=== PATIENT | male | born 1935 | race Caucasian/White ===

== ENCOUNTER 2018-04-12 18:44 | Emergency (ER) | payer OTHER ==
[~2018-04-12] VITALS: Ht 170.2 cm; Wt 81.7 kg
[~2018-04-12 18:44] MED LIST: ALLEGRA ALLERG180 MG; AMITRIPTYLINE H10 M3 PO; ASPIR 8181 MG PO; CALCIUM 500 +1 EAC5 PO; CARBIDOPA-LEVO1 EAC2 PO; CIPRO500 MG PO; CITRATE OF MAG296 ML PO; COLESTID1 GM PO; EZETIMIBE; FLAGYL500 MG PO; HYDROCODONE-AP1 EAC6 PO; LISINOPRIL2.5 M1 PO; LOPRESSOR25 PO; MINIPRIN81 MG; MIRALAX17 GM PO; NORVASC10 MG PO; PRILOSEC 20 MG20 MG PO; PRINIVIL20 MG; SERTRALINE; TOPROL XL50 MG; TYLENOL325 MG PO; ZETIA10 MG PO; ZOLOFT50 MG PO
[2018-04-12] MEDS ORDERED: SINEMET 25-2501 EAC1 PO (20:46)
[2018-04-12 21:12] VITALS: BP 132/93
== END 2018-04-12 21:14 | disposition home or self-care (01) ==
LOC: M.ERS 18:44
DX: S01.01XA Laceration without foreign body of scalp, initial encounter (principal); I25.810 Atherosclerosis of coronary artery bypass graft(s) without angina pectoris; I10 Essential (primary) hypertension; E78.00 Pure hypercholesterolemia, unspecified; G30.9 Alzheimer's disease, unspecified; F02.80 Dementia in other diseases classified elsewhere, unspecified severity, without behavioral disturbance, psychotic disturbance, mood disturbance, and anxiety; Z88.2 Allergy status to sulfonamides; Z88.5 Allergy status to narcotic agent; W19.XXXA Unspecified fall, initial encounter; Y93.89 Activity, other specified; Y92.091 Bathroom in other non-institutional residence as the place of occurrence of the external cause; Y99.8 Other external cause status

== ENCOUNTER → 2018-05-24 | Outpatient (CLI) | payer OTHER ==
[~2018-05-24] MED LIST changes: +SINEMET 25-2501 EAC1 PO
== END ==
LOC: M.WC 09:16
DX: S51.811A Laceration without foreign body of right forearm, initial encounter (principal); I10 Essential (primary) hypertension; K21.9 Gastro-esophageal reflux disease without esophagitis; I25.10 Atherosclerotic heart disease of native coronary artery without angina pectoris; G20 Parkinson's disease; F33.1 Major depressive disorder, recurrent, moderate; Z79.82 Long term (current) use of aspirin; Z87.891 Personal history of nicotine dependence; X58.XXXA Exposure to other specified factors, initial encounter; Y93.89 Activity, other specified; Y92.89 Other specified places as the place of occurrence of the external cause; Y99.8 Other external cause status

== ENCOUNTER 2018-10-29 21:54 | Inpatient (IN) | payer OTHER ==
[~2018-10-29] VITALS: Ht 172.7 cm; Wt 79.4 kg
[2018-10-29 21:58] VITALS: BP 173/123
[2018-10-29 22:35] LABS: ABSOLUTE BASOPHILS 0.1 thou/uL (0.0-0.2); ABSOLUTE EOSINOPHILS 0.2 thou/uL (0.0-0.7); ABSOLUTE LYMPHOCYTES 1.3 thou/uL (0.8-5.3); ABSOLUTE MONOCYTES 0.6 thou/uL (0.0-1.2); BASOPHILS 0.5 %; EOSINOPHILS 1.4 %; HEMATOCRIT 41.6 % (42.0-52.0); HEMOGLOBIN 14.1 gm/dL (14.0-18.0); MCH 31.5 pg (26.0-34.0); MCHC 33.8 g/dL (28.0-37.0); MCV 93.3 fL (80.0-100.0); MONOCYTES 4.8 %; MPV 7.4 fl. (7.2-11.1); NUCLEATED RBCS 0 /100WBC; PLATELET COUNT* 198 thou/uL (150-400); POLYS 83.3 %; RBC 4.46 mil/uL (4.50-6.00); RDW-CV 13.1 % (10.5-14.5); WBC 13.2 thou/uL (4.0-11.0)
[2018-10-29 22:43] LABS: ANION GAP 11 mmol/L (7-16); BUN 26 mg/dL (7-18); CALCIUM 8.6 mg/dL (8.5-10.1); CHLORIDE 103 mmol/L (98-107); CO2 21 mmol/L (21-32); CREATININE 1.5 mg/dL (0.6-1.3); GLUCOSE 156 mg/dL (70-99); POTASSIUM 4.1 mmol/L (3.5-5.1); SODIUM 135 mmol/L (136-145)
[2018-10-29 22:45] LABS: PROTIME 10.3 Seconds (9.20-11.50)
[2018-10-29 22:54] LABS: ALBUMIN 3.5 g/dL (3.4-5.0); ALKALINE PHOSPHATASE 140 U/L (46-116); LIPASE 49 U/L (73-393); NT-PRO BRAIN NAT PEPTIDE 141 pg/mL (<300); SGOT 23 U/L (15-37); SGPT 13 U/L (30-65); TOTAL BILIRUBIN 0.7 mg/dL (<0.1-1.0); TOTAL PROTEIN 7.4 g/dL (6.4-8.2); TROPONIN-I LEVEL <0.06 ng/mL (<0.06)
[2018-10-29 22:54] LABS: URINE BILIRUBIN NEGATIVE (Negative); URINE BLOOD NEGATIVE (Negative); URINE CLARITY CLEAR; URINE COLOR YELLOW; URINE GLUCOSE-RANDOM NEGATIVE (Negative); URINE KETONES TRACE (Negative); URINE LEUKOCYTES-REFLEX NEGATIVE (Negative); URINE NITRITE-REFLEX NEGATIVE (Negative); URINE PROTEIN NEGATIVE (Negative); URINE SPECIFIC GRAVITY 1.025 (1.005-1.030); URINE UROBILINOGEN 0.2 E.U./dl (0.2-1.0)
[2018-10-29 23:43] LABS: INFLUENZA A ANTIGEN None Detected (None Detect); INFLUENZA B ANTIGEN None Detected (None Detect)
[2018-10-30] VITALS (7 sets, daily range): BP systolic 96–126; BP diastolic 50–68
--- NOTE | 2018-10-30 03:44 | NUR ---
83 Y/O MALE ADMITTED TO TELEMETRY ROOM 213 AT APPROXIMATELY 0040 WITH AN ADMITTING DIAGNOSIS OF IRREGULAR HEART BEAT, JAW PAIN, FALL. PT IS A&O X 3. AND DAUGHTER AT BEDSIDE UPON ARRIVAL. PT DENIES ANY PAIN AT THIS TIME. PT IS TRACING SR ON MONITOR. VSS. PT IS PLEASANT AND COMPLIAMT WITH ALL REQUESTS. REFER TO COMPUTER CHARTING FOR FURTHER DETAIL. HOURLY ROUNDING FOR PT SAFETY. CLWR.
--- NOTE | 2018-10-30 08:36 | NUR ---
ASSUMED CARE OF PT THIS AM AROUND 714- SEQUINS WINDER IN PLACE ORDERED, TRACING SR WITH PAC'S- UPON ASSESSMENT PT NOTED TO BE RESTING IN BED, DAUGHTER AT BEDISDE- PT A&O X2-3, WITH NOTED FORGETFULLNESS- CONTINENT OF BOWEL AND BLADDER WITH NOTED URGENCY- ASSIST X1 WITH TRANSFERS- LCTA, RESP EVEN AND UN-LABORED- VSS, O2 SAT 95% ON 2L VIA NC- ABD SOFT/ROUND/NON-TENDER, BS X4 QUADS- LAST BM REPORTED 09-28-18- IV NOTED TO RIGHT FA INTACT AND SL- DIET ADVANCED TO REGULAR WITH NECTAR LIQUIDS THIS AM- PT DENIES ANY C/O PAIN/DISCOMFORT AT THIS TIME- CALL LIGHT AND PERSONAL BELONGINGS WITH IN REACH- HOURLY ROUNDS IN PLACE R/T SAFETY/NEEDS- ALL NEEDS MET AT THIS TIME-WCTM
--- NOTE | 2018-10-30 10:17 | EKG ---
[place] [address] ELECTROCARDIOGRAM REPORT Name: HECTOR CARRINGTON Room: [address] ADM IN M.R.#: [id number] Admission: 10/30/18 Attend Phys: Davy Dillon MD Discharge: Date of : 31 Report #: [id number] THIS REPORT FOR: //name// [facility] ED Test Date: 2018-10-29 Test Time: 22:19:46 Pat Name: HECTOR CARRINGTON Department: Room: [facility] Gender: M Mainspring Torque Tester: GL : 1935 Requested By: Tessy Garcia Order Number: [id number] MD: Blaine Dorsey Measurements Intervals [place] Rate: 101 P: 47 AL: 134 QRS: 82 QRSD: 90 T: 25 QT: 327 QTc: 424 Interpretive Statements Sinus tachycardia Ventricular premature complex Borderline right axis deviation Compared to ECG 05/24/2016 06:58:10 Ventricular premature complex(es) now present Right bundle-branch block no longer present Myocardial infarct finding no longer present Electronically Signed On 10-30-2018 10:16:55 TELECOMMUNICATIONS ENGINEER by Blaine Dorsey [email or web address] <ELECTRONICALLY SIGNED> By: Blaine Dorsey MD, FAC 10/30/18 1016 2219 2219 Blaine Dorsey MD, [facility] /EPI
--- NOTE | 2018-10-30 15:34 | NUR ---
INITIAL ASSESSMENT: CM SPK W/PT'S DTR, BECKIE TO DISCUSS D/C PLANNING, HOME SITUATION, TO EDUCATE PT ON CM ROLE. PT A&OX 2-3, PT GET CONFUSED W/PLACE AND NOT ORIENTED TO TIME. PT'S DTR STATES FAMILY IS WORKING W/VA SW TO HAVE PT PLACE IN LTC @ [facility]. PT HAS HX W/SNF @ [facility] IN 2016. CM TO CONT TO FOLLOW PT TO ASSIST PRN.
--- NOTE | 2018-10-30 16:41 | NUR ---
PT CURRNELTY RESTING IN BED- WIC SITE COORDINATOR IN PLACE ORDERED, TRACING SB WITH PAC- IV TO RIGHT FA INTACT, IVF INFUSSING PRESCIBED- GOOD PO INTAKE NOTED THIS SHIFT WITH MEASL- OT/PT CONSULTED THIS SHIFT- PT UP TO BED SIDE CHAIR WITH LUNCH THIS SHIFT, TOLERATING WELL- MED BM NOTED THIS SHIFT- PT DENEIS ANY C/O PAIN/DISCOMFORT AT THIS TIME- CALL LIGHT AND PERSONAL BELONGINGS WITH IN REACH- ALL NEEDS MET AT THIS TIME-WCTM
[2018-10-30 23:08] LABS: GLYCOHEMOGLOBIN (HGB A1C) 6.6 % (4.8-5.6)
[2018-10-31] VITALS (7 sets, daily range): BP systolic 93–127; BP diastolic 39–62
[2018-10-31 05:20] LABS: HEMATOCRIT 34.3 % (42.0-52.0); MCV 94.2 fL (80.0-100.0); MPV 7.8 fl. (7.2-11.1); RBC 3.64 mil/uL (4.50-6.00); RDW-CV 12.8 % (10.5-14.5)
[2018-10-31 05:28] LABS: HEMOGLOBIN 11.7 gm/dL (14.0-18.0)
[2018-10-31 05:33] LABS: CREATININE 1.4 mg/dL (0.6-1.3); POTASSIUM 4.7 mmol/L (3.5-5.1)
--- NOTE | 2018-10-31 07:03 | NUR ---
VITALS WNL. SEE MAR. SEE CHARTING. FALL PRECAUTIONS IN PLACE. HOURLY ROUNDING FOR SAFETY.
--- NOTE | 2018-10-31 09:00 | NUR ---
ASSUMED CARE OF PT THIS AM AROUND 0715- COMIC WRITER IN PLACE ORDERED, TRACING SB THIS AM- UPON ASSESSMENT PT NOTED TO BE RESTING IN BED, DAUGHTER AT SIDE VISITING- PT SEEMS TO BE MORE ALERT THIS AM- A&O X3 WITH FORGETFULLNESS- CONTINENT VS INCONTINENT OF BOWEL AND BLADDER- LIMITED ASSIST WITH TRANSFERS- LCTA, DIMINISHED IN BASES- RESP EVEN AND UN-LABORED- VSS, O2 SAT 97% ON 2L VIA NC- BAD SOFT/ROUND/NON-TENDER, BS X4 QUADS- LAST BM REPORTED 10/30/18- IV NOTED TO RIGHT FA INTACT AND SL- PT UP TO BED SIDE CHAIR THIS AM WITH BREAKFAST, REGULAR DIET WITH NECTAR LIQUIDS IN PLACE WITH GOOD PO INTAKE NOTED- PT DENIES ANY C/O PAIN/DISCOMFORT AT THIS TIME- CALL LIGHT AND PERSONAL BELONGINGS WITH IN REACH- HOURLY ROUNDS IN PLACE R/T SAFETY/NEEDS- ALL NEEDS MET AT THIS TIME-WCTM
[2018-10-31] MEDS ORDERED: LOPRESSOR25 PO (09:37)
--- NOTE | 2018-10-31 10:40 | NUR ---
CM spoke with Pt's dtr, dtr wants Pt to dc to [facility] skilled at dc. Therapies ordered, awaiting evals. KIRILL spoke with Liliane at [facility], they have bed availability. CM faxed intitial referral, will fax therapy evals once available. Following.
--- NOTE | 2018-10-31 16:20 | NUR ---
PT RYDER RESTING IN BED SIDE CHAIR, AT SIDE VISITING- LABOR RELATIONS ANALYST IN PLACE ORDERED, TRACING SR/SB THIS SHIFT- IV TO LEFT FA INTACT AND SL- PT UP TO CHAIR THIS SHIFT WITH MEALS, TOLERATING WELL WITH GOOD PO INTAKE NOTED- METOPROLOL CHANGED TO SUCCINATE DAILY THIS SHIFT- OKAY TO D/C PER CARDIOLOGY AND THIS SHIFT TO RESIDENTIAL- D/C TO SKILLED PENDING INSURANCE AUTHORIZATION- PT WORKING WITH THERAPIES THIS SHIFT ORDERED, TOLERATING WELL- DENIES ANY C/O PAIN/DISCOMFORT AT THIS TIME- CALL LIGHT AND PERSONAL BELONGINGS WITH IN REACH- BED/CHAIR ALARM IN PLACE AND WORKING FOR PT SAFETY- ALL NEEDS MET AT THIS TIME-WCTM
[2018-11-01 00:09] VITALS: BP 124/61
[2018-11-01 04:09] VITALS: BP 113/61
--- NOTE | 2018-11-01 06:58 | NUR ---
VITALS WNL. SEE MAR. SEE CHARTING. FALL PRECAUTIONS IN PLACE. HOURLY ROUNDING FOR SAFEY.
[2018-11-01 08:21] VITALS: BP 136/76
--- NOTE | 2018-11-01 09:00 | NUR ---
CM faxed therapy notes to [facility], asked that they initiate ins auth
--- NOTE | 2018-11-01 10:23 | NUR ---
ASSUMED CARE OF PT THIS AM AROUND 0715- PECAN CLEANER IN PLACE ORDERED, TRACING SB THIS AM- UPON ASSESSMENT PT NOTED TO BE RESTING IN BED- PT A&O X3 WITH FORGETFULLNESS AND IMPULSIVENESS NOTED- LCTA, DIMINISHED IN BASES- DYSPNEA NOTED ON EXERTION- VSS, O2 SAT 98% ON 2L VIA [id number] COUGH NOTED- ABD SOFT/ROUND/NON-TENDER, BS X4 QUADS- LAST BM REPORTED 10/30/18- IV NOTED TO RIGHT FOREARM INTACT AND SL- REGULAR DIET IN PLACE WITH NECTAR LIQUIDS, GOOD PO INTAKE NOTED-PT UP TO BED SIDE CHAIR, TOLERATING WELL- DAUGHTER AT BED SIDE THIS AM- PT DENIES ANY C/O PAIN/DISCOMFORT AT THIS TIME- CALL LIGHT AND PERSONAL BELONGINGS WITH IN REACH- BED/CHAIR ALARMS IN PLACE R/T SAFETY- HOURLY ROUNDS IN PLACE R/T SAFETY/NEEDS- ALL NEEDS MET AT THIS TIME-WCTM
--- NOTE | 2018-11-01 12:23 | CON ---
[address] [address] CONSULTATION Name: HECTOR CARRINGTON Room: [address] IN M.R.#: [id number] Admission: 10/30/18 Attend Phys: Davy Dillon MD Discharge: Date of : 33 Report #: [id number] THIS REPORT FOR: //name// CC: Davy Calabrese DATE OF SERVICE: 10/30/2018 TYPE OF REPORT: Inpatient consultation. CHIEF COMPLAINT: Neck discomfort, heart racing and fall. HISTORY OF PRESENT ILLNESS: The patient is an 83-year-old man with a history of progressive neurologic disease as well as coronary artery disease. He presented to the emergency room with an episode of dizziness, lightheadedness fall and was noted to have a tachycardia with heart rates in the 150s-160s in a narrow complex. He converted to a sinus rhythm. He was evaluated with a CT scan of the brain did not show evidence of intracranial trauma or bleeding. Overnight on telemetry, he has had frequent episodes of sinus rhythm and PACs but no documented atrial fibrillation, although there was concern he has atrial fibrillation. From a cardiovascular standpoint, he denies palpitations and he only he notices his heart is racing when his neck hurts and he gets anxious feeling. He does have an underlying history of prior bypass surgery and he is followed by Dr. Driscoll. He has a history of progressive neurologic disease, PSP and is treated with levodopa, carbidopa and has had frequent falls almost on a weekly basis. He also has separate symptoms of frequent constipation and heart reflux symptoms causing chest pain symptoms similar to angina. His ECG did not show an acute ST-segment changes and his first cardiac troponin level is 0.06. PAST MEDICAL HISTORY: He has a history of remote in 2005, 5-vessel bypass at [facility], is followed by Dr. Driscoll. He has at the time of our most recent evaluation in 2016, normal LV systolic function, although records from are pending. At that time, he also had some history of nonsustained ventricular tachycardia. He has hypertension and the aforementioned neurologic disease. His graft history includes a RUTH to LAD, a saphenous vein graft to the right coronary artery and saphenous vein graft to the diagonal, obtuse and posterolateral branch. FAMILY HISTORY: [place] [address] CONSULTATION Name: HECTOR CARRINGTNO Room: [address]#: [id number] Admission: 10/30/18 Attend Phys: Davy Dillon MD Discharge: Date of : 33 Report #: [id number] SOCIAL HISTORY: He is . There was talk of him may be needing a shelter because of his neurologic disease. He is a remote smoker. ALLERGIES: He has allergies to SULFA, NYSTATIN and OXYCODONE. HOME MEDICATIONS: Include the following: Levodopa/carbidopa 25/250 mg daily, lisinopril 2.5 mg daily, omeprazole 20 mg daily, baby aspirin, amitriptyline, Zoloft and Zetia 10 mg daily. REVIEW OF SYSTEMS: GASTROINTESTINAL: No nausea or vomiting. Positive constipation. No hematemesis or melena. GENITOURINARY: No dysuria or hematuria. NEUROLOGICAL: Denies seizures. Positive Parkinson's disease like symptoms. Positive weakness. Positive falls. Positive gait stability. PULMONARY: Positive shortness of breath. Positive orthopnea. Positive PND. SKIN: No rashes. GENERAL: No fevers or chills. THROAT: Denies any dysphagia. ENDOCRINE: No diabetes. PHYSICAL EXAMINATION: VITAL SIGNS: Blood pressure is ranging from 96 systolic to 120 and he actually came in hypertensive with systolic pressures in the 170s. His overnight, heart rates have been in the 60s-70s in a sinus rhythm with PACs and temperature is 36.4. GENERAL: This is an elderly male. He is a poor historian. HEENT: There is no evidence of trauma. Eyes: EOMs intact. No facial asymmetry. NECK: Supple. No jugular venous distention. CARDIOVASCULAR: Regular. I cannot hear a murmur. LUNGS: Diminished breath sounds bilaterally. ABDOMEN: Nontender. EXTREMITIES: There is no peripheral edema. There is peripheral wasting. RADIOLOGICAL DATA: Electrocardiogram shows a sinus rhythm with a PVC, left axis deviation and normal ST segments. LABORATORY DATA: Hemoglobin is 14.1 and white blood count is 13.2. Sodium is 135, potassium is 4.1, chloride is 103, BUN is 26, creatinine is 1.5 and GFR is 44. INR is 1.0. IMPRESSION AND RECOMMENDATIONS: 1. Narrow-complex tachycardia. On initial telemetry, it looked like an supraventricular tachycardia to myself, but there is also mention of possible [facility] [address] [place] [address] CONSULTATION Name: HECTOR CARRINGTON Room: M.213-P ADM IN M.R.#: [id number] Admission: 10/30/18 Attend Phys: Davy Dillon MD Discharge: Date of : 33 Report #: [id number] atrial fibrillation on telemetry strips but I have not seen those, in our telemetry, he is in a sinus rhythm with frequent premature atrial contractions. Based on his historical data, I would not pursue an aggressive atrial fibrillation workup as the patient does not seem to be a good candidate for aggressive medical therapy including anticoagulation because of his documented falls. I would place him on a low dose of beta juan. I would avoid calcium channel blockers as he already has constipation symptoms because of his neurologic disease. 2. Coronary artery disease. His neck discomfort may represent an anginal episode triggered by his tachycardia. I would continue with medical therapy including aspirin if possible but if his falls worsened, aspirin may need to be discontinued. 3. Progressive neurologic disease, Parkinson's disease/progressive supranuclear palsy. He is on aggressive medical therapy for this and followed by [facility]. 4. Status post coronary artery bypass grafting. At this point in time, we will continue with conservative medical therapy. <ELECTRONICALLY SIGNED> By: Blaine Dorsey MD, FACC 11/01/18 1223 0957 2127Blaine Dorsey MD, FACC /nt
[2018-11-01 12:56] VITALS: BP 128/61
--- NOTE | 2018-11-01 16:28 | NUR ---
PT CURRENTLY RESTING IN BED SIDE CHAIR AWAITING DINNER- CHAIR ALARM IN PLACE R/T SAFETY/NEEDS- COMMERCIAL LOAN ASSISTANT IN PLACE ORDERED, TRACING SB THIS SHIFT- D/C TO SKILLED PLANNED PENDING INSURANCE AUTH- IV NOTED TO RIGHT FA INTACT AND SL- WORKING WITH THERAPIES PRESCRIBED THIS SHIFT, TOLERATING WELL- UP TO BED SIDE CHAIR WITH MEALS, GOOD PO INTAKE NOTED- REST/EXERCISE TEST COMPLETED PER RT THIS SHIFT, REPORTED TO NOT NEED O2 AT TIME OF D/C- 94-97% ON RA NOTED- METOPROLOL DECREASED TO 12.5MG BID THIS SHIFT- DENIES ANY C/O PAIN/DISCOMFORT AT THIS TIME- CALL LIGHT AND PERSONAL BELONGINGS WITH IN REACH- FREQUENT CHECKS IN PLACE R/T SAFETY/NEEDS- ALL NEEDS MET AT THIS TIME-WCTM
[2018-11-01 16:49] VITALS: BP 118/58
[2018-11-01 20:00] VITALS: BP 121/64
[2018-11-02] VITALS: BP 155/72
[2018-11-02 04:00] VITALS: BP 126/68
--- NOTE | 2018-11-02 06:30 | NUR ---
ASSUMED CARE OF PT AFTER REPORT AT 1930. PT A&OX4. VSS. PHYSICAL ASSESSMENT COMPLETED AND CHARTED. PT ON RA WITH 97% O2 SAT. PT TRACING SB/ PACS ON TELE. PT UP STANBY TO RESTROOM. PT DENIES NAY PAIN OR DISCOMFORT. PT RESTED WELL ON BED. CALL LIGHT WITHIN REACH.
[2018-11-02 08:00] VITALS: BP 152/80
--- NOTE | 2018-11-02 08:00 | NUR ---
ASSUMED CARE OF PT AT 0730. PT RESTING IN BED WAITING FOR BREAKFAST. PT A&0X3-4, FORGETFUL AND IMPULSIVE AT TIMES. PT TRACING SB ON THE MORTGAGE PROCESSING CLERK. ON RA SAT UPPER 90'S. DENIES ANY SHORTNESS OF BREATH OR PAIN AT THIS TIME. PT UP WITH 1 ASSIST TO BATHROOM. PT GOAL FOR TODAY IS TO INCREASE ACTIVITY AND DISCHARGEG PLANNING TO SENIOR LIVING FACILITY. AM ASSSESSMENT CHARTED. MEDICATIONS PER MAR WHOLE IN APPLESAUCE. PT REPOSITIONED EVERY 2 HOURS FOR COMFORT. HOURLY ROUNDING OBSERVED. BED IN LOW POSITION. BED ALARM IN PLACE. FALL PRECAUTIONS IN PLACE. CALL LIGHT WITHIN REACH. WILL CONTINUE PLAN OF CARE.
[2018-11-02 09:29] VITALS: BP 152/80
--- NOTE | 2018-11-02 09:48 | NUR ---
Pt discharging to [facility], facility will picking crew supervisor at 1130. Faxed dc orders. Chart copied. Nurse report number provided, [phone]. Updated Pt's dtr.
--- NOTE | 2018-11-02 11:34 | NUR ---
DISCHARGE ORDERS RECEIVED FOR PT TO DISCHARGE TO [facility]. DISCHARGE INSTRUCTIONS, CARE NOTES AND FOLLOW UP APPTS COPIED AND PLACED IN FOLDER FOR PT AT DISCHARGE. EDUCATION GIVEN TO PT DAUGHTER, PT DAUGHTER COMMUNICATES UNDERSTANDING OF DISCHARGE TEACHING. IV AND ORACLE DISTRIBUTION CONSULTANT REMOVED. PT DISCHARGED WITH ALL BELONGINGS AND PAPERWORK VIA WHEELCHAIR WITH WHEELCHAIR VAN SERVICE. REPORT CALLED TO JAMARI AT [facility].
== END 2018-11-02 11:35 | DRG 309 ==
LOC: M.ERS 21:54 → M.2W 10-30 00:05 → M.TBA-ER 10-30 00:05 → M.2W 10-30 00:40
PROVIDERS: Emergency Medicine; Family Medicine; ADMIT Internal Medicine
DX: I49.3 Ventricular premature depolarization (principal); G23.1 Progressive supranuclear ophthalmoplegia [Steele-Richardson-Olszewski]; E86.0 Dehydration; N18.3 Chronic kidney disease, stage 3 (moderate); I25.10 Atherosclerotic heart disease of native coronary artery without angina pectoris; E78.00 Pure hypercholesterolemia, unspecified; G30.9 Alzheimer's disease, unspecified; F02.80 Dementia in other diseases classified elsewhere, unspecified severity, without behavioral disturbance, psychotic disturbance, mood disturbance, and anxiety; R53.83 Other fatigue; R00.0 Tachycardia, unspecified; I12.9 Hypertensive chronic kidney disease with stage 1 through stage 4 chronic kidney disease, or unspecified chronic kidney disease; G20 Parkinson's disease; G89.29 Other chronic pain; M54.9 Dorsalgia, unspecified; Z79.82 Long term (current) use of aspirin; Z88.6 Allergy status to analgesic agent; Z88.2 Allergy status to sulfonamides; Z82.49 Family history of ischemic heart disease and other diseases of the circulatory system; Z95.1 Presence of aortocoronary bypass graft; Z87.891 Personal history of nicotine dependence; Z79.899 Other long term (current) drug therapy; Z88.8 Allergy status to other drugs, medicaments and biological substances

== ENCOUNTER 2018-11-28 13:35 | Inpatient (IN) | payer OTHER ==
[~2018-11-28] VITALS: Ht 182.9 cm; Wt 78.5 kg
[2018-11-28 13:37] VITALS: BP 161/67
[2018-11-28 14:24] LABS: ABSOLUTE EOSINOPHILS 0.2 thou/uL (0.0-0.7); ABSOLUTE LYMPHOCYTES 2.5 thou/uL (0.8-5.3); ABSOLUTE MONOCYTES 0.6 thou/uL (0.0-1.2); ABSOLUTE NEUTROPHILS 3.1 thou/uL (1.6-8.1); BASOPHILS 0.7 %; EOSINOPHILS 3.7 %; HEMATOCRIT 42.4 % (42.0-52.0); HEMOGLOBIN 14.4 gm/dL (14.0-18.0); LYMPHOCYTES 38.4 %; MCH 31.7 pg (26.0-34.0); MCHC 33.9 g/dL (28.0-37.0); MCV 93.4 fL (80.0-100.0); MONOCYTES 9.5 %; NUCLEATED RBCS 0 /100WBC; PLATELET COUNT* 202 thou/uL (150-400); POLYS 47.7 %; RBC 4.54 mil/uL (4.50-6.00); WBC 6.5 thou/uL (4.0-11.0)
[2018-11-28 14:34] LABS: APTT 27.3 Seconds (25.0-31.3); PROTIME 10.5 Seconds (9.20-11.50)
[2018-11-28 14:42] LABS: ANION GAP 6 mmol/L (7-16); BUN 32 mg/dL (7-18); CALCIUM 9.2 mg/dL (8.5-10.1); CHLORIDE 101 mmol/L (98-107); CO2 29 mmol/L (21-32); CREATININE 1.4 mg/dL (0.6-1.3); GLUCOSE 108 mg/dL (70-99); POTASSIUM 4.8 mmol/L (3.5-5.1); SODIUM 136 mmol/L (136-145); TROPONIN-I LEVEL <0.06 ng/mL (<0.06)
[2018-11-28 14:47] LABS: ALBUMIN 3.9 g/dL (3.4-5.0); ALKALINE PHOSPHATASE 120 U/L (46-116); CK-MB MASS 1.9 ng/mL (<0.5-3.6); NT-PRO BRAIN NAT PEPTIDE 93 pg/mL (<300); SGOT 24 U/L (15-37); SGPT 18 U/L (30-65); TOTAL BILIRUBIN 0.7 mg/dL (<0.1-1.0); TOTAL PROTEIN 7.9 g/dL (6.4-8.2)
--- NOTE | 2018-11-28 16:10 | EKG ---
[place] [address] ELECTROCARDIOGRAM REPORT Name: HECTOR CARRINGTON Room: [place] [address] ADM IN .R.#: [id number] Admission: 11/28/18 Attend Phys: Kadeem Esparza MD Discharge: Date of : 33 Report #: [id number] THIS REPORT FOR: //name// [facility] ED Test Date: 2018-11-28 Test Time: 13:56:55 Pat Name: HECTOR CARRINGTON Department: Room: [facility] Gender: M Clinical Lab Technologist: : 1935 Requested By: Luis Sanchez Order Number: [id number] MD: Aidan Boyle Measurements Intervals [place] Rate: 56 P: 51 TX: 225 QRS: 38 QRSD: 91 T: 18 QT: 428 QTc: 414 Interpretive Statements Sinus rhythm Prolonged TX interval Compared to ECG 10/29/2018 22:19:46 First degree AV block now present Sinus tachycardia no longer present Ventricular premature complex(es) no longer present Electronically Signed On 11-28-2018 16:10:52 SECURITY ORDERLY by Aidan Boyle [email or web address] <ELECTRONICALLY SIGNED> By: Aidan Boyle MD, [facility] 11/28/18 1610 1356 1356 Aidan Boyle MD, [facility] /EPI
[2018-11-28 16:28] VITALS: BP 109/64
[2018-11-28 17:23] LABS: BE -2.3 mmol/L (-2 to +3); PCO2 34.6 mmHg (35.0-45.0); PO2 66.8 mmHg (75.0-100.0); pH 7.413 (7.340-7.450)
[2018-11-28 18:56] LABS: URINE BILIRUBIN NEGATIVE (Negative); URINE BLOOD NEGATIVE (Negative); URINE CLARITY CLEAR; URINE COLOR YELLOW; URINE GLUCOSE-RANDOM NEGATIVE (Negative); URINE KETONES NEGATIVE (Negative); URINE LEUKOCYTES-REFLEX NEGATIVE (Negative); URINE NITRITE-REFLEX NEGATIVE (Negative); URINE PROTEIN NEGATIVE (Negative); URINE UROBILINOGEN 0.2 E.U./dl (0.2-1.0)
[2018-11-28 21:05] VITALS: BP 100/62
[2018-11-29] VITALS: BP 142/82
[2018-11-29 03:30] VITALS: BP 170/72
[2018-11-29 09:00] VITALS: BP 128/76
[2018-11-29 12:00] VITALS: BP 111/57
[2018-11-29 15:40] VITALS: BP 98/58
[2018-11-29 20:00] VITALS: BP 92/53
[2018-11-30] VITALS (7 sets, daily range): BP systolic 90–125; BP diastolic 53–68
[2018-11-30 04:53] LABS: CALCIUM 8.7 mg/dL (8.5-10.1); CREATININE 1.7 mg/dL (0.6-1.3); MAGNESIUM 2.2 mg/dL (1.8-2.4); POTASSIUM 4.4 mmol/L (3.5-5.1)
[2018-12-01 04:00] VITALS: BP 119/62
[2018-12-01 05:13] LABS: HEMATOCRIT 38.3 % (42.0-52.0); HEMOGLOBIN 13.1 gm/dL (14.0-18.0); MCH 31.9 pg (26.0-34.0); MCHC 34.2 g/dL (28.0-37.0); MCV 93.4 fL (80.0-100.0); MPV 7.7 fl. (7.2-11.1); RBC 4.1 mil/uL (4.50-6.00); WBC 7.4 thou/uL (4.0-11.0)
[2018-12-01 05:35] LABS: ALBUMIN 3.5 g/dL (3.4-5.0); CALCIUM 8.6 mg/dL (8.5-10.1); CREATININE 1.4 mg/dL (0.6-1.3); MAGNESIUM 2.2 mg/dL (1.8-2.4); POTASSIUM 4.6 mmol/L (3.5-5.1); TOTAL BILIRUBIN 0.5 mg/dL (<0.1-1.0); TOTAL PROTEIN 7.1 g/dL (6.4-8.2)
[2018-12-01 08:00] VITALS: BP 123/64
[2018-12-01 16:06] VITALS: BP 123/61
[2018-12-01 20:00] VITALS: BP 124/62
[2018-12-02] VITALS: BP 131/72
[2018-12-02 04:00] VITALS: BP 131/72
[2018-12-02 05:03] LABS: HEMATOCRIT 39.4 % (42.0-52.0); HEMOGLOBIN 13.3 gm/dL (14.0-18.0); MCH 31.6 pg (26.0-34.0); MCHC 33.6 g/dL (28.0-37.0); MCV 93.9 fL (80.0-100.0); MPV 7.4 fl. (7.2-11.1); RBC 4.2 mil/uL (4.50-6.00); RDW-CV 13.1 % (10.5-14.5); WBC 7.2 thou/uL (4.0-11.0)
[2018-12-02 05:29] LABS: CALCIUM 8.4 mg/dL (8.5-10.1); CREATININE 1.4 mg/dL (0.6-1.3); MAGNESIUM 2.2 mg/dL (1.8-2.4); POTASSIUM 4.6 mmol/L (3.5-5.1)
[2018-12-02 08:00] VITALS: BP 133/76
[2018-12-02 12:02] VITALS: BP 135/65
[2018-12-02 15:58] VITALS: BP 141/62
[2018-12-02 20:00] VITALS: BP 111/48; BP 154/88
[2018-12-03] VITALS: BP 154/88
[2018-12-03 04:00] VITALS: BP 143/70
[2018-12-03 08:00] VITALS: BP 102/58
[2018-12-03] MEDS ORDERED: NASACORT10.8 ML NASAL (10:28)
[2018-12-03] MEDS ORDERED: ARICEPT10 M1 PO (10:28)
[2018-12-03] MEDS ORDERED: NAMENDA 10 MG T10 MG PO (10:28)
[2018-12-03 14:07] VITALS: BP 102/58
--- NOTE | 2018-12-07 10:16 | EEG ---
[address] [address] EEG STUDY REPORT Name: HECTOR CARRINGTON Room: [address] IN M.R.#: [id number] Admission: 11/28/18 Attend Phys: Kadeem Esparza MD Discharge: 12/03/18 Date of : 33 Report #: [id number] THIS REPORT FOR: //name// CC: Kadeem Calabrese DATE OF SERVICE: 12/01/2018 INDICATION: This patient is being evaluated for altered mental status. FINDINGS: EEG was done by placing the electrode by standard 10-20 system of electrode placement. Both referential and sequential montages were used for recording. Background activity in this patient's EEG is about 7 Hz and 30 microvolt. The patient became drowsy that is associated with bilateral slowing. Photic stimulation was unremarkable. Throughout the record, no active epileptiform activity was noticed. IMPRESSION: This patient's EEG is intermixed with theta range slowing on both sides. That is a nonspecific abnormality which can occur with dementia, encephalopathy, effects of psychotropic medication, etc. Clinical correlation is recommended. <ELECTRONICALLY SIGNED> By: Paulo Gaston MD 12/07/18 1016 1811 [id number] Gaston MD /nt
--- NOTE | 2018-12-07 10:16 | CON ---
[address] [address] CONSULTATION Name: HECTOR CARRINGTON Room: [address] IN M.R.#: [id number] Admission: 11/28/18 Attend Phys: Kadeem Esparza MD Discharge: 12/03/18 Date of : 33 Report #: [id number] THIS REPORT FOR: //name// CC: Kadeem Calabrese DATE OF SERVICE: 12/01/2018 HISTORY OF PRESENT ILLNESS: This is an 83-year-old male patient whose history is not clear. I initially talked to the patient, but I cannot get a good history. In fact, I cannot get any reliable history. I reviewed the patient's records including the records from Emergency Room and that provided some history. I talked to the patient's daughter and subsequently to the patient's . It looks like the patient was diagnosed with progressive supranuclear palsy about 6 years ago by a neurologist at [facility]. What features he had is not clear. Record indicates that he has some dementia, but the says he was functioning reasonably well. Whether he has any Parkinson features or not, the is not very clear. He has been confused. Some of the records indicate it started a few days ago. Some of the records indicate that it may have started even much prior to that. He did undergo a CT scan of the head in the Emergency Room and that does not show any acute changes. According to the , the patient recently had an MRI. I do not know what the indication was to have the MRI. REVIEW OF SYSTEMS: A 14-point review of systems was carried out in this patient. It is not clear at all what the patient's history is. It does look like he has a history of hypertension, coronary artery disease and what looks like a progressive supranuclear palsy. Thus, all the history I can get after talking to the for some time. He does have a history of fall. One of the histories indicate that he had a V-tach in the ER. PAST MEDICAL HISTORY: Positive for progressive supranuclear palsy. FAMILY HISTORY: Negative for any early age stroke. SOCIAL HISTORY: The patient has family and I talked to the daughter and subsequently to the patient's . He apparently does not drink any alcohol. PHYSICAL EXAMINATION: Indicate his speech looks slurred. He said it is going on for 6 months. He still can talk. He does not know what month it is. He did not know what hospital he is in. His memory is pretty poor. His cranial nerve examination does indicate a restricted movement of extraocular movement in the upward gaze and that will be consistent with progressive supranuclear palsy. He moves all 4 extremities. He said he can feel on both sides. Cardiac examination clinically looks noncontributory. Respiratory examinations appear also noncontributory. Blood pressure is 123/64, respirations 16, pulse is 58, [place] [address] CONSULTATION Name: HECTOR CARRINGTON Room: [address] IN ..#: [id number] Admission: 11/28/18 Attend Phys: Kadeem Esparza MD Discharge: 12/03/18 Date of : 33 Report #: [id number] temperature 97.6. LABORATORY DATA: His urine is mostly unremarkable. His white count is normal. His CT is as described above. IMPRESSION: This patient presently has pretty significant confusion. I am having difficult time telling how much is new and how much is old. I am trying to get the record from his neurologist to see why was a recent MRI done and what kind of baseline he has. Depending upon that, he may need some further workup. He did have a fall and CT looks okay and I may have to repeat the MRI, but I would like to get his prior records first. He is pretty confused and because of that, I will clear his spine. I will get an EEG done. Otherwise, I will basically await the records from his other physician to see if we can get that. More than 50 minutes of time was spent taking care of this patient and majority of that was spent in counseling and coordinating. <ELECTRONICALLY SIGNED> By: Paulo Gaston MD 12/07/18 1016 1052 0547Paulo Gaston MD /nt
== END 2018-12-03 15:35 | disposition home health service (06) | DRG 91 ==
LOC: M.ERS 13:35 → M.2W 14:34 → M.TBA-ER 14:34 → M.2W 21:52
PROVIDERS: Family Medicine; ADMIT Internal Medicine
DX: G92 Toxic encephalopathy (principal); J96.92 Respiratory failure, unspecified with hypercapnia; I67.89 Other cerebrovascular disease; G23.1 Progressive supranuclear ophthalmoplegia [Steele-Richardson-Olszewski]; G30.9 Alzheimer's disease, unspecified; F02.80 Dementia in other diseases classified elsewhere, unspecified severity, without behavioral disturbance, psychotic disturbance, mood disturbance, and anxiety; T44.3X5A Adverse effect of other parasympatholytics [anticholinergics and antimuscarinics] and spasmolytics, initial encounter; F07.81 Postconcussional syndrome; I12.9 Hypertensive chronic kidney disease with stage 1 through stage 4 chronic kidney disease, or unspecified chronic kidney disease; E78.00 Pure hypercholesterolemia, unspecified; E78.5 Hyperlipidemia, unspecified; I25.10 Atherosclerotic heart disease of native coronary artery without angina pectoris; J32.3 Chronic sphenoidal sinusitis; G20 Parkinson's disease; J32.2 Chronic ethmoidal sinusitis; N18.3 Chronic kidney disease, stage 3 (moderate); Y92.89 Other specified places as the place of occurrence of the external cause; Z88.8 Allergy status to other drugs, medicaments and biological substances; Z95.1 Presence of aortocoronary bypass graft; Z88.2 Allergy status to sulfonamides; Z87.891 Personal history of nicotine dependence; Z28.21 Immunization not carried out because of patient refusal

== ENCOUNTER 2018-12-13 12:41 | Emergency (ER) | payer OTHER ==
[~2018-12-13] VITALS: Ht 167.6 cm; Wt 80.3 kg
[~2018-12-13 12:41] MED LIST changes: +ARICEPT10 M1 PO; +NAMENDA 10 MG T10 MG PO; +NASACORT10.8 ML NASAL
[2018-12-13 13:20] LABS: ABSOLUTE EOSINOPHILS 0.3 thou/uL (0.0-0.7); ABSOLUTE MONOCYTES 0.7 thou/uL (0.0-1.2); ABSOLUTE NEUTROPHILS 4.5 thou/uL (1.6-8.1); BASOPHILS 0.4 %; HEMATOCRIT 39.9 % (42.0-52.0); HEMOGLOBIN 13.5 gm/dL (14.0-18.0); LYMPHOCYTES 26.8 %; MCV 94.3 fL (80.0-100.0); MONOCYTES 8.8 %; MPV 7.1 fl. (7.2-11.1); NUCLEATED RBCS 0 /100WBC; PLATELET COUNT* 194 thou/uL (150-400); RBC 4.23 mil/uL (4.50-6.00); RDW-CV 13.2 % (10.5-14.5); WBC 7.5 thou/uL (4.0-11.0)
[2018-12-13 13:28] LABS: APTT 27.5 Seconds (25.0-31.3); PROTIME 10.2 Seconds (9.20-11.50)
[2018-12-13 13:36] LABS: ALBUMIN 3.4 g/dL (3.4-5.0); ALKALINE PHOSPHATASE 112 U/L (46-116); ANION GAP 8 mmol/L (7-16); BUN 24 mg/dL (7-18); CALCIUM 8.6 mg/dL (8.5-10.1); CHLORIDE 105 mmol/L (98-107); CO2 25 mmol/L (21-32); CREATININE 1.2 mg/dL (0.6-1.3); GLUCOSE 122 mg/dL (70-99); POTASSIUM 4.6 mmol/L (3.5-5.1); SGOT 25 U/L (15-37); SGPT 9 U/L (30-65); SODIUM 138 mmol/L (136-145); TOTAL BILIRUBIN 0.4 mg/dL (<0.1-1.0); TOTAL PROTEIN 7.2 g/dL (6.4-8.2); TROPONIN-I LEVEL <0.06 ng/mL (<0.06)
[2018-12-13 14:19] LABS: URINE BILIRUBIN NEGATIVE (Negative); URINE BLOOD NEGATIVE (Negative); URINE CLARITY CLEAR; URINE COLOR YELLOW; URINE GLUCOSE-RANDOM NEGATIVE (Negative); URINE KETONES TRACE (Negative); URINE LEUKOCYTES-REFLEX NEGATIVE (Negative); URINE NITRITE-REFLEX NEGATIVE (Negative); URINE PROTEIN NEGATIVE (Negative); URINE SPECIFIC GRAVITY 1.025 (1.005-1.030); URINE UROBILINOGEN 0.2 E.U./dl (0.2-1.0)
[2018-12-13 15:41] VITALS: BP 154/72
--- NOTE | 2018-12-14 09:09 | EKG ---
[place] [address] ELECTROCARDIOGRAM REPORT Name: HECTOR CARIRNGTON [id number] Admission: 12/13/18 Attend Phys: Discharge: 12/13/18 Date of : 33 Report #: [id number] THIS REPORT FOR: //name// [facility] ED Test Date: 2018-12-13 Test Time: 13:06:38 Pat Name: HECTOR CARRINGTON Department: Room: Gender: Alodize Machine Operator: [place] REYNAGA : 1935 Requested By: Sondra Zacarias Order Number: [id number] MD: Corona Blunt Measurements Intervals [place] Rate: 49 P: 0 OR: 190 QRS: 58 QRSD: 103 T: 45 QT: 455 QTc: 411 Interpretive Statements Sinus bradycardia Atrial premature complexes Compared to ECG 11/28/2018 13:56:55 Atrial premature complex(es) now present Sinus rhythm no longer present Electronically Signed On 12-14-2018 9:08:49 CDT by Corona Blunt [email or web address] <ELECTRONICALLY SIGNED> By: Corona Blunt MD, [facility] 12/14/18 0908 1306 130 Corona Blunt MD, FAC /EPI
== END 2018-12-13 15:42 | disposition home or self-care (01) ==
LOC: M.ERS 12:41
PROVIDERS: Physician Assistant
DX: S01.411A Laceration without foreign body of right cheek and temporomandibular area, initial encounter (principal); R00.1 Bradycardia, unspecified; I25.10 Atherosclerotic heart disease of native coronary artery without angina pectoris; I10 Essential (primary) hypertension; E78.00 Pure hypercholesterolemia, unspecified; G30.9 Alzheimer's disease, unspecified; F02.80 Dementia in other diseases classified elsewhere, unspecified severity, without behavioral disturbance, psychotic disturbance, mood disturbance, and anxiety; Z88.8 Allergy status to other drugs, medicaments and biological substances; Z88.2 Allergy status to sulfonamides; Z88.4 Allergy status to anesthetic agent; W18.39XA Other fall on same level, initial encounter; Y92.89 Other specified places as the place of occurrence of the external cause; Y93.89 Activity, other specified; Y99.8 Other external cause status

== ENCOUNTER 2019-01-22 18:17 | Emergency (ER) | payer OTHER ==
[~2019-01-22] VITALS: Ht 165.1 cm; Wt 78.9 kg
[2019-01-22 19:46] LABS: ABSOLUTE EOSINOPHILS 0.2 thou/uL (0.0-0.7); ABSOLUTE LYMPHOCYTES 1.7 thou/uL (0.8-5.3); ABSOLUTE MONOCYTES 0.9 thou/uL (0.0-1.2); ABSOLUTE NEUTROPHILS 6.2 thou/uL (1.6-8.1); BASOPHILS 0.5 %; EOSINOPHILS 2.6 %; HEMATOCRIT 39.3 % (42.0-52.0); HEMOGLOBIN 13.6 gm/dL (14.0-18.0); LYMPHOCYTES 19.1 %; MCH 32.5 pg (26.0-34.0); MCHC 34.5 g/dL (28.0-37.0); MCV 94.2 fL (80.0-100.0); MONOCYTES 9.6 %; MPV 6.9 fl. (7.2-11.1); NUCLEATED RBCS 0 /100WBC; PLATELET COUNT* 214 thou/uL (150-400); POLYS 68.2 %; RBC 4.17 mil/uL (4.50-6.00); RDW-CV 13.6 % (10.5-14.5); WBC 9.1 thou/uL (4.0-11.0)
[2019-01-22 19:56] LABS: APTT 27.5 Seconds (25.0-31.3); PROTIME 10.1 Seconds (9.20-11.50)
[2019-01-22 20:02] LABS: ALBUMIN 3.7 g/dL (3.4-5.0); ALKALINE PHOSPHATASE 106 U/L (46-116); ANION GAP 11 mmol/L (7-16); BUN 22 mg/dL (7-18); CHLORIDE 102 mmol/L (98-107); CO2 26 mmol/L (21-32); CREATININE 1.6 mg/dL (0.6-1.3); GLUCOSE 132 mg/dL (70-99); POTASSIUM 4.3 mmol/L (3.5-5.1); SGOT 29 U/L (15-37); SGPT 10 U/L (30-65); SODIUM 139 mmol/L (136-145); TOTAL BILIRUBIN 0.4 mg/dL (<0.1-1.0); TOTAL PROTEIN 7.5 g/dL (6.4-8.2); TROPONIN-I LEVEL <0.06 ng/mL (<0.06)
[2019-01-22] MEDS ORDERED: NORCO 5-325 TA1 EACH PO (21:01)
[2019-01-22 21:32] LABS: URINE BILIRUBIN NEGATIVE (Negative); URINE BLOOD NEGATIVE (Negative); URINE CLARITY CLEAR; URINE COLOR YELLOW; URINE GLUCOSE-RANDOM NEGATIVE (Negative); URINE KETONES TRACE (Negative); URINE LEUKOCYTES-REFLEX NEGATIVE (Negative); URINE NITRITE-REFLEX NEGATIVE (Negative); URINE PROTEIN NEGATIVE (Negative); URINE SPECIFIC GRAVITY >= 1.030 (1.005-1.030); URINE UROBILINOGEN 0.2 E.U./dl (0.2-1.0)
[2019-01-22 21:46] LABS: BACTERIA-REFLEX 1-9 Few /HPF (None Seen); SQUAMOUS 0-3 Few /LPF (0-3); URINE RBC 0-2 Rare /HPF (0-2); URINE WBC-REFLEX 0-5 Rare /HPF (0-5)
[2019-01-22 21:47] LABS: CASTS None Seen /LPF (None Seen); CRYSTALS None Seen /LPF (None Seen)
[2019-01-22 21:55] VITALS: BP 128/52
--- NOTE | 2019-01-23 11:08 | EKG ---
[place] [address] ELECTROCARDIOGRAM REPORT Name: HECTOR CARRINGTON Zen [id number] Admission: 01/22/19 Attend Phys: Discharge: 01/22/19 Date of : 33 Report #: [id number] THIS REPORT FOR: //name// [facility] ED Test Date: 2019-01-22 Test Time: 19:50:46 Pat Name: HECTOR CARRINGTON Department: Room: Gender: M Senior Client Advisor: HENRY : 1935 Requested By: Margret Soler Order Number: [id number] MD: Corona Blunt Measurements Intervals [place] Rate: 72 P: 14 NM: 142 QRS: 42 QRSD: 111 T: 43 QT: 422 QTc: 462 Interpretive Statements Sinus rhythm Atrial premature complexes Low voltage, precordial leads Artifact in lead(s) I,aVF,V1,V2,V3,V4,V5,V6 Compared to ECG 12/13/2018 13:06:38 Low QRS voltage now present Sinus bradycardia no longer present Electronically Signed On 01-23-2019 11:08:27 CDT by Corona Blunt [email or web address] <ELECTRONICALLY SIGNED> By: Corona Blnut MD, FAC 01/23/19 1108 1950 1950 Corona Blunt MD, [facility] /EPI
== END 2019-01-22 21:55 | disposition home or self-care (01) ==
LOC: M.ERS 18:17
PROVIDERS: Nurse Practitioner Family
DX: S22.040A Wedge compression fracture of fourth thoracic vertebra, initial encounter for closed fracture (principal); S22.030A Wedge compression fracture of third thoracic vertebra, initial encounter for closed fracture; S22.080A Wedge compression fracture of T11-T12 vertebra, initial encounter for closed fracture; S16.1XXA Strain of muscle, fascia and tendon at neck level, initial encounter; S70.01XA Contusion of right hip, initial encounter; S09.8XXA Other specified injuries of head, initial encounter; I25.10 Atherosclerotic heart disease of native coronary artery without angina pectoris; I10 Essential (primary) hypertension; E78.00 Pure hypercholesterolemia, unspecified; G30.8 Other Alzheimer's disease; F02.80 Dementia in other diseases classified elsewhere, unspecified severity, without behavioral disturbance, psychotic disturbance, mood disturbance, and anxiety; I48.91 Unspecified atrial fibrillation; Z88.8 Allergy status to other drugs, medicaments and biological substances; Z88.2 Allergy status to sulfonamides; Z88.4 Allergy status to anesthetic agent; W18.39XA Other fall on same level, initial encounter; Y92.89 Other specified places as the place of occurrence of the external cause; Y93.89 Activity, other specified; Y99.8 Other external cause status

== ENCOUNTER 2019-01-25 17:27 | Emergency (ER) | payer OTHER ==
[~2019-01-25] VITALS: Ht 165.1 cm; Wt 85.5 kg
[~2019-01-25 17:27] MED LIST changes: +NORCO 5-325 TA1 EACH PO
[2019-01-25] MEDS ORDERED: NAMENDA 10 MG T10 MG PO (17:41)
[2019-01-25] MEDS ORDERED: MIRALAX17 GM PO (17:44)
[2019-01-25 19:14] VITALS: BP 134/71
== END 2019-01-25 19:28 | disposition home or self-care (01) ==
LOC: M.ERS 17:27
DX: S40.211A Abrasion of right shoulder, initial encounter (principal); I25.810 Atherosclerosis of coronary artery bypass graft(s) without angina pectoris; I10 Essential (primary) hypertension; E78.00 Pure hypercholesterolemia, unspecified; G30.9 Alzheimer's disease, unspecified; F02.80 Dementia in other diseases classified elsewhere, unspecified severity, without behavioral disturbance, psychotic disturbance, mood disturbance, and anxiety; I48.91 Unspecified atrial fibrillation; Z88.2 Allergy status to sulfonamides; Z88.5 Allergy status to narcotic agent; Z88.8 Allergy status to other drugs, medicaments and biological substances; W18.39XA Other fall on same level, initial encounter; Y93.89 Activity, other specified; Y92.89 Other specified places as the place of occurrence of the external cause; Y99.8 Other external cause status

== ENCOUNTER 2019-02-14 23:13 | Emergency (ER) | payer OTHER ==
[~2019-02-14] VITALS: Ht 165.1 cm; Wt 83.0 kg
[2019-02-14] MEDS ORDERED: VITAMIN D5000 UNIT PO (23:37)
[2019-02-14 23:38] LABS: URINE BILIRUBIN NEGATIVE (Negative); URINE BLOOD NEGATIVE (Negative); URINE CLARITY CLEAR; URINE COLOR YELLOW; URINE GLUCOSE-RANDOM NEGATIVE (Negative); URINE KETONES NEGATIVE (Negative); URINE LEUKOCYTES-REFLEX NEGATIVE (Negative); URINE NITRITE-REFLEX NEGATIVE (Negative); URINE PROTEIN NEGATIVE (Negative); URINE SPECIFIC GRAVITY >= 1.030 (1.005-1.030); URINE UROBILINOGEN 0.2 E.U./dl (0.2-1.0)
[2019-02-14] MEDS ORDERED: TYLENOL325 MG PO (23:38)
[2019-02-14 23:39] LABS: ABSOLUTE BASOPHILS 0.1 thou/uL (0.0-0.2); ABSOLUTE EOSINOPHILS 0.3 thou/uL (0.0-0.7); ABSOLUTE LYMPHOCYTES 1.9 thou/uL (0.8-5.3); ABSOLUTE MONOCYTES 0.8 thou/uL (0.0-1.2); BASOPHILS 0.6 %; EOSINOPHILS 2.9 %; HEMATOCRIT 35.2 % (42.0-52.0); HEMOGLOBIN 11.9 gm/dL (14.0-18.0); LYMPHOCYTES 20.6 %; MCH 32.1 pg (26.0-34.0); MCHC 33.7 g/dL (28.0-37.0); MCV 95.2 fL (80.0-100.0); MONOCYTES 9.4 %; MPV 7.1 fl. (7.2-11.1); NUCLEATED RBCS 0 /100WBC; PLATELET COUNT* 236 thou/uL (150-400); POLYS 66.5 %; RDW-CV 13.4 % (10.5-14.5)
[2019-02-14 23:42] LABS: ANION GAP 9 mmol/L (7-16); BUN 24 mg/dL (7-18); CALCIUM 8.4 mg/dL (8.5-10.1); CHLORIDE 106 mmol/L (98-107); CO2 24 mmol/L (21-32); CREATININE 1.3 mg/dL (0.6-1.3); GLUCOSE 144 mg/dL (70-99); POTASSIUM 4.1 mmol/L (3.5-5.1); SODIUM 139 mmol/L (136-145)
[2019-02-14 23:51] LABS: ALBUMIN 3.2 g/dL (3.4-5.0); ALKALINE PHOSPHATASE 138 U/L (46-116); SGOT 21 U/L (15-37); SGPT 8 U/L (30-65); TOTAL BILIRUBIN 0.4 mg/dL (<0.1-1.0); TOTAL PROTEIN 6.8 g/dL (6.4-8.2); TROPONIN-I LEVEL <0.06 ng/mL (<0.06)
[2019-02-15 00:57] VITALS: BP 145/71
--- NOTE | 2019-02-15 11:16 | EKG ---
[place] [address] ELECTROCARDIOGRAM REPORT Name: CHARISSAHECTOR Zaldivar [id number] Admission: 02/14/19 Attend Phys: Discharge: 02/15/19 Date of : 31 Report #: [id number] THIS REPORT FOR: //name// [facility] ED Test Date: 2019-02-14 Test Time: 23:18:03 Pat Name: HECTOR CARRINGTON Department: Room: Gender: M Pump Machine Operator: DAVID : 1935 Requested By: Jax Yuong Order Number: [id number] MD: Corona Blunt Measurements Intervals [place] Rate: 77 P: 53 NM: 58 QRS: 72 QRSD: 91 T: 41 QT: 430 QTc: 487 Interpretive Statements Sinus rhythm Supraventricular bigeminy Short NM interval Compared to ECG 01/22/2019 19:50:46 Short NM interval now present Electronically Signed On 02-15-2019 11:16:28 CDT by Corona Blunt [email or web address] <ELECTRONICALLY SIGNED> By: Corona Blunt MD, [facility] 02/15/19 1116 2318 2318 Corona Blunt MD, FACC /EPI
== END 2019-02-15 00:57 | disposition home or self-care (01) ==
LOC: M.ERS 23:13
PROVIDERS: Nurse Practitioner Psychiatric/Mental Health
DX: S00.83XA Contusion of other part of head, initial encounter (principal); I25.10 Atherosclerotic heart disease of native coronary artery without angina pectoris; I10 Essential (primary) hypertension; E78.00 Pure hypercholesterolemia, unspecified; G30.8 Other Alzheimer's disease; F02.80 Dementia in other diseases classified elsewhere, unspecified severity, without behavioral disturbance, psychotic disturbance, mood disturbance, and anxiety; I48.91 Unspecified atrial fibrillation; Z88.8 Allergy status to other drugs, medicaments and biological substances; Z88.2 Allergy status to sulfonamides; Z88.4 Allergy status to anesthetic agent; W18.39XA Other fall on same level, initial encounter; Y92.89 Other specified places as the place of occurrence of the external cause; Y93.89 Activity, other specified; Y99.8 Other external cause status

== ENCOUNTER 2019-03-03 08:48 | Inpatient (IN) | payer OTHER ==
[~2019-03-03] VITALS: Ht 165.1 cm; Wt 85.7 kg
[~2019-03-03 08:48] MED LIST changes: +VITAMIN D5000 UNIT PO
[2019-03-03 08:49] VITALS: BP 207/90
[2019-03-03] MEDS ORDERED: VITAMIN D250000 UNIT PO (08:59)
[2019-03-03] MEDS ORDERED: ARICEPT10 M1 PO (09:01)
[2019-03-03 09:17] LABS: ABSOLUTE EOSINOPHILS 0.3 thou/uL (0.0-0.7); ABSOLUTE LYMPHOCYTES 0.7 thou/uL (0.8-5.3); ABSOLUTE MONOCYTES 0.5 thou/uL (0.0-1.2); ABSOLUTE NEUTROPHILS 6.9 thou/uL (1.6-8.1); BASOPHILS 0.2 %; EOSINOPHILS 3.7 %; HEMATOCRIT 40.1 % (42.0-52.0); HEMOGLOBIN 13.6 gm/dL (14.0-18.0); LYMPHOCYTES 8.1 %; MCH 32.7 pg (26.0-34.0); MCV 96.3 fL (80.0-100.0); MONOCYTES 5.5 %; MPV 6.8 fl. (7.2-11.1); NUCLEATED RBCS 0 /100WBC; PLATELET COUNT* 242 thou/uL (150-400); POLYS 82.5 %; RBC 4.16 mil/uL (4.50-6.00); RDW-CV 13.4 % (10.5-14.5); WBC 8.4 thou/uL (4.0-11.0)
[2019-03-03 09:30] LABS: ANION GAP 9 mmol/L (7-16); BUN 19 mg/dL (7-18); CALCIUM 8.9 mg/dL (8.5-10.1); CHLORIDE 103 mmol/L (98-107); CO2 27 mmol/L (21-32); CREATININE 1.2 mg/dL (0.6-1.3); GLUCOSE 149 mg/dL (70-99); POTASSIUM 4.5 mmol/L (3.5-5.1); SODIUM 139 mmol/L (136-145)
[2019-03-03 09:42] LABS: ALBUMIN 3.9 g/dL (3.4-5.0); ALKALINE PHOSPHATASE 149 U/L (46-116); SGOT 26 U/L (15-37); SGPT 31 U/L (30-65); TOTAL BILIRUBIN 0.8 mg/dL (<0.1-1.0); TOTAL PROTEIN 8.1 g/dL (6.4-8.2); TROPONIN-I LEVEL <0.06 ng/mL (<0.06)
[2019-03-03 12:48] LABS: URINE BILIRUBIN NEGATIVE (Negative); URINE BLOOD NEGATIVE (Negative); URINE CLARITY CLEAR; URINE COLOR YELLOW; URINE GLUCOSE-RANDOM NEGATIVE (Negative); URINE KETONES NEGATIVE (Negative); URINE LEUKOCYTES-REFLEX NEGATIVE (Negative); URINE NITRITE-REFLEX NEGATIVE (Negative); URINE PROTEIN NEGATIVE (Negative); URINE UROBILINOGEN 0.2 E.U./dl (0.2-1.0)
[2019-03-03 14:21] VITALS: BP 121/60
[2019-03-03 14:55] VITALS: BP 134/76
[2019-03-03 18:11] LABS: HEMATOCRIT 33.5 % (42.0-52.0); MCHC 33.7 g/dL (28.0-37.0); MCV 97.7 fL (80.0-100.0); MPV 7.1 fl. (7.2-11.1); NUCLEATED RBCS 0 /100WBC; PLATELET COUNT* 184 thou/uL (150-400); RBC 3.43 mil/uL (4.50-6.00); RDW-CV 13.6 % (10.5-14.5); WBC 8.9 thou/uL (4.0-11.0)
[2019-03-03 18:14] LABS: HEMOGLOBIN 11.3 gm/dL (14.0-18.0)
[2019-03-03 18:43] LABS: ABSOLUTE LYMPHOCYTES 0.4 thou/uL (0.8-5.3); ABSOLUTE MONOCYTES 0.2 thou/uL (0.0-1.2); ABSOLUTE NEUTROPHILS 8.4 thou/uL (1.6-8.1); PLATELET ESTIMATE ADEQUATE
[2019-03-03 19:50] VITALS: BP 118/59
[2019-03-04] VITALS: BP 111/63
[2019-03-04 04:00] VITALS: BP 129/69
[2019-03-04 05:29] LABS: ABSOLUTE MONOCYTES 0.7 thou/uL (0.0-1.2); HEMATOCRIT 31.2 % (42.0-52.0); HEMOGLOBIN 10.6 gm/dL (14.0-18.0); LYMPHOCYTES 9.1 %; MCH 32.9 pg (26.0-34.0); MCV 96.8 fL (80.0-100.0); MONOCYTES 6.6 %; MPV 7.4 fl. (7.2-11.1); NUCLEATED RBCS 0 /100WBC; PLATELET COUNT* 174 thou/uL (150-400); POLYS 84.3 %; RBC 3.22 mil/uL (4.50-6.00); RDW-CV 13.6 % (10.5-14.5); WBC 10.7 thou/uL (4.0-11.0)
[2019-03-04 06:03] LABS: ALBUMIN 2.7 g/dL (3.4-5.0); CALCIUM 7.9 mg/dL (8.5-10.1); CREATININE 1.1 mg/dL (0.6-1.3); MAGNESIUM 1.8 mg/dL (1.8-2.4); POTASSIUM 4.3 mmol/L (3.5-5.1); TOTAL BILIRUBIN 0.3 mg/dL (<0.1-1.0)
[2019-03-04 07:54] VITALS: BP 130/58
--- NOTE | 2019-03-04 09:40 | CON ---
[address] [address] CONSULTATION Name: CHARISSAHECTOR Zen Room: [address] IN M.R.#: [id number] Admission: 03/03/19 Attend Phys: Adams Sams MD Discharge: Date of : 31 Report #: [id number] THIS REPORT FOR: //name// CC: Keena Sams CARDIOLOGY CONSULTATION INDICATION: SVT. HISTORY OF PRESENT ILLNESS: The patient is an 83-year-old gentleman with history of coronary artery disease and coronary artery bypass grafting remotely. The patient has been admitted to the hospital with complaints of congestion, runny nose and productive cough. He had a recent fall, fracturing his nose and losing a tooth. He has had multiple falls in the last several months due to his history of progressive supranuclear palsy. While in the Emergency Room, he was noted to have an episode of supraventricular tachycardia that spontaneously resolved followed by another episode that required Adenocard. The patient has a history of these arrhythmias in the past. He had been on beta juan to suppress this; however, because of bradycardia, the beta-juan was discontinued. He is not charted whether or not he was symptomatic with his bradycardia. Presently, he is not having any significant chest pain. His shortness of breath is felt to be due to upper respiratory congestion, possibly related to his recent nasal fracture. PAST MEDICAL HISTORY: 1. Coronary artery disease with remote coronary artery bypass grafting. 2. Progressive supranuclear palsy. 3. History of nonsustained ventricular tachycardia. 4. Hypertension. PAST SURGICAL HISTORY: Five-vessel coronary artery bypass graft in 2005 with RUTH to the LAD, saphenous vein graft to the right coronary artery and saphenous vein graft to the diagonal, obtuse marginal and posterolateral branches. FAMILY HISTORY: Positive for coronary artery disease. SOCIAL HISTORY: The patient is a remote smoker. He presently resides in assisted care. His is in attendance with him today. ALLERGIES: SULFA, NYSTATIN, OXYCODONE. HOME MEDICATIONS: 1. Tylenol 325 mg q.4 hours p.r.n. 2. Sinemet 25/250 mg 2 [place] [address] CONSULTATION Name: HECTOR CARRINGTON Room: [address]#: [id number] Admission: 03/03/19 Attend Phys: Adams Sams MD Discharge: Date of : 31 Report #: [id number] 3. Aricept 10 mg at bedtime. 4. Zetia 5 mg daily. 5. Namenda 10 mg b.i.d. 6. Omeprazole 20 mg daily. 7. MiraLax 17 grams daily. 8. Zoloft 50 mg half a tablet daily. 9. Nasacort nasal spray daily. 10. Vitamin D2 at 50,000 units weekly. PHYSICAL EXAMINATION: VITAL SIGNS: Blood pressure 121/60, pulse 108. GENERAL: This is an elderly gentleman who appears to be in no distress. Mood and affect appropriate. HEENT: Swelling of the nasal bridge, consistent with prior fracture. Extraocular muscles intact. Mucous membranes moist. NECK: Shows no jugular venous distention. I do not appreciate carotid bruit. CHEST: Reveals clear lung allen without wheezes or rales. CARDIOVASCULAR: Reveals a regular rhythm without gallop or murmur. ABDOMEN: Reveals normal bowel sounds. The abdomen is soft, nontender. EXTREMITIES: Show no significant edema. LABORATORY DATA: Troponin level less than 0.06. EKG shows sinus tachycardia with first-degree AV block. Telemetry strips in the Emergency Room show supraventricular tachycardia with a rate of 155 beats per minute. IMPRESSION AND RECOMMENDATIONS: 1. Paroxysmal supraventricular tachycardia. We will resume low-dose beta juan and follow on telemetry. As long as he is asymptomatic with his bradycardia, I would not be overly concerned about this. 2. Coronary artery disease, presently stable. He is not having any symptoms to suggest angina. 3. Dyslipidemia. The patient is currently on Zetia. We will check fasting lipid profile. 4. Frequent falls secondary to neurologic disorder. We will have physical therapy evaluate the patient for ambulation. <ELECTRONICALLY SIGNED> By: Patrice Banuelos MD, FACC 03/04/19 0940 1508 2319Micelroy Banuelos MD, FACC /nt
[2019-03-04 11:37] VITALS: BP 153/61
--- NOTE | 2019-03-04 15:32 | EKG ---
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: : 1935 Requested By: Victor Manuel Phillips Order Number: [id number] Tye MD: Aidan Boyle Measurements Intervals [place] Rate: 94 P: -34 CO: 155 QRS: 61 QRSD: 94 T: 28 QT: 358 QTc: 448 Interpretive Statements Sinus rhythm Consider inferior infarct Compared to ECG 02/14/2019 23:18:03 Myocardial infarct finding now possibel Atrial premature complex(es) no longer present Short [place] interval no longer present Electronically Signed On 03-04-2019 15:32:21 CDT by Aidan Boyle [email or web address] <ELECTRONICALLY SIGNED> By: Aidan Boyle MD, [facility] 03/04/19 1532 2 2 Aidan Boyle MD, [facility] /EPI
[2019-03-04 15:33] VITALS: BP 114/75
--- NOTE | 2019-03-04 15:33 | EKG ---
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 : 1935 Requested By: Shaq Jose Order Number: [id number] Tye MD: Aidan Boyle Measurements Intervals [place] Rate: 155 P: 0 MS: 106 QRS: 76 QRSD: 92 T: -43 QT: 313 QTc: 503 Interpretive Statements Supraventricular tachycardia or atrial flutter with 2:1 block Borderline low voltage, extremity leads Repolarization abnormality, prob rate related Compared to ECG 02/14/2019 23:18:03 Early repolarization now present Sinus rhythm no longer present Atrial premature complex(es) no longer present Short [place] interval no longer present Electronically Signed On 03-04-2019 15:33:44 CDT by Aidan Boyle [email or web address] <ELECTRONICALLY SIGNED> By: Aidan Boyle MD, [facility] 03/04/19 1533 1054 1054 Aidan Boyle MD, [facility] /EPI
--- NOTE | 2019-03-04 15:34 | EKG ---
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1935 Requested By: Shaq Jose Order Number: [id number] Tye MD: Aidan Boyle Measurements Intervals [place] Rate: 114 P: -54 CT: 144 QRS: 75 QRSD: 92 T: 17 QT: 338 QTc: 466 Interpretive Statements Sinus or ectopic atrial tachycardia Minimal ST depression, anterolateral leads Compared to ECG 02/14/2019 23:18:03 ST (T wave) deviation now present Atrial premature complex(es) no longer present Short CT interval no longer present Electronically Signed On 03-04-2019 15:34:06 CDT by Aidan Boyle [email or web address] <ELECTRONICALLY SIGNED> By: Aidan Boyle MD, [facility] 03/04/19 1534 1109 1109 Aidan Boyle MD, [facility] /EPI
--- NOTE | 2019-03-04 15:35 | EKG ---
[place] [address] ELECTROCARDIOGRAM REPORT Name: HECTOR CARRINGTON Room: [address] ADM IN .R.#: [id number] Admission: 03/03/19 Attend Phys: Adams Sams MD Discharge: Date of : 33 Report #: [id number] THIS REPORT FOR: //name// 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1935 Requested By: Shaq Jose Order Number: [id number] MD: Aidan Boyle Measurements Intervals [place] Rate: 114 P: 0 IL: 145 QRS: 87 QRSD: 92 T: 17 QT: 338 QTc: 466 Interpretive Statements Sinus tachycardia Left atrial enlargement Borderline right axis deviation Minimal ST depression, anterolateral leads Compared to ECG 02/14/2019 23:18:03 Atrial abnormality now present ST (T wave) deviation now present Atrial premature complex(es) no longer present Short [place] interval no longer present Electronically Signed On 03-04-2019 15:35:19 CDT by Aidan Boyle [email or web address] <ELECTRONICALLY SIGNED> By: Aidan Boyle MD, [facility] 03/04/19 1535 1214 1214 Aidan Boyle MD, [facility] /EPI
--- NOTE | 2019-03-04 15:40 | EKG ---
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1935 Requested By: Shaq Jose Order Number: [id number] MD: Aidan Boyle Measurements Intervals [place] Rate: 71 P: 54 FL: 222 QRS: 48 QRSD: 95 T: 52 QT: 416 QTc: 453 Interpretive Statements Sinus rhythm Atrial premature complexes Prolonged FL interval Baseline wander in lead(s) V1 Compared to ECG 02/14/2019 23:18:03 First degree AV block now present Short [place] interval no longer present Electronically Signed On 03-04-2019 15:40:24 CDT by Aidan Boyle [email or web address] <ELECTRONICALLY SIGNED> By: Aidan Boyle MD, [facility] 03/04/19 1540 08 08 Aidan Boyle MD, [facility] /EPI
[2019-03-04 19:50] VITALS: BP 112/70
[2019-03-05 00:12] VITALS: BP 130/70
[2019-03-05 04:00] VITALS: BP 150/69
[2019-03-05 05:16] LABS: ABSOLUTE BASOPHILS 0.1 thou/uL (0.0-0.2); ABSOLUTE EOSINOPHILS 0.4 thou/uL (0.0-0.7); ABSOLUTE LYMPHOCYTES 1.6 thou/uL (0.8-5.3); ABSOLUTE NEUTROPHILS 7.6 thou/uL (1.6-8.1); BASOPHILS 0.5 %; EOSINOPHILS 3.5 %; HEMATOCRIT 32.5 % (42.0-52.0); HEMOGLOBIN 11.1 gm/dL (14.0-18.0); LYMPHOCYTES 15.4 %; MCH 32.8 pg (26.0-34.0); MCHC 34.1 g/dL (28.0-37.0); MCV 96.3 fL (80.0-100.0); MONOCYTES 9.2 %; MPV 7.2 fl. (7.2-11.1); NUCLEATED RBCS 0 /100WBC; PLATELET COUNT* 190 thou/uL (150-400); POLYS 71.4 %; RBC 3.37 mil/uL (4.50-6.00); RDW-CV 13.6 % (10.5-14.5); WBC 10.7 thou/uL (4.0-11.0)
[2019-03-05 06:09] LABS: CALCIUM 8.3 mg/dL (8.5-10.1); CREATININE 1.3 mg/dL (0.6-1.3); MAGNESIUM 1.7 mg/dL (1.8-2.4); POTASSIUM 3.8 mmol/L (3.5-5.1)
[2019-03-05 08:00] VITALS: BP 169/83
[2019-03-05 11:35] VITALS: BP 165/91
[2019-03-05 15:58] VITALS: BP 153/78
[2019-03-05 19:50] VITALS: BP 156/72
[2019-03-06] VITALS (7 sets, daily range): BP systolic 138–170; BP diastolic 67–88
--- NOTE | 2019-03-06 12:37 | CON ---
[address] [address] CONSULTATION Name: CHARISSAHECTOR Zen Room: [address] IN M.R.#: [id number] Admission: 03/03/19 Attend Phys: Adams Sams MD Discharge: Date of : 33 Report #: [id number] THIS REPORT FOR: //name// CC: Keena Sams DATE OF SERVICE: 03/04/2019 INFECTIOUS DISEASE CONSULTATION ATTENDING PHYSICIAN: Dr. Sams. REASON FOR EVALUATION: Respiratory distress, lower respiratory tract infection. HISTORY OF PRESENT ILLNESS: Chart reviewed, the patient examined. This is an 83-year-old gentleman with a known history of some dementia, who lives in a [facility] who earlier this week had fallen, which he does fairly frequently. He was evaluated and was found to have a fracture involving the cartilage of his nose, otherwise without significant problems; however, within the 72 hours, he has developed increasing difficulty breathing. Evaluation was undertaken. Chest x-ray showed no acute process; however, he was hypoxemic and he did require some supplemental oxygen. CT showed no evidence of pulmonary embolus, tentatively diagnosed with bronchitis. Per spouse, he did have some productive cough of yellowish sputum and temperature up to 101. At this point, he states he feels better. He is unable to give too many details of the history. His appetite has been somewhat variable. Due to concern about infectious etiology, he was started on empiric therapy with cefepime, Flagyl, and vancomycin. ALLERGIES: SULFA, STATINS, OXYCODONE, FENTANYL, AND ATORVASTATIN. CURRENT MEDICATIONS: Include ergocalciferol, sertraline, ezetimibe, pantoprazole, vancomycin, p.r.n. analgesics, antiemetics, aspirin, Flagyl, metoprolol, and cefepime. PAST MEDICAL HISTORY: He has known atherosclerotic coronary artery disease with previous aortocoronary bypass grafting, chronic back pain, hypertension, high cholesterol, Alzheimer's disease, progressive supranuclear palsy, frequent falls, and atrial fibrillation. SOCIAL HISTORY: Nonsmoker and no ethanol. FAMILY HISTORY: Noncontributory. REVIEW OF SYSTEMS: [place] [address] CONSULTATION Name: HECTOR CARRINGTON Room: [address]#: [id number] Admission: 03/03/19 Attend Phys: Adams Sams MD Discharge: Date of : 33 Report #: [id number] PHYSICAL EXAMINATION: GENERAL: He appears chronically ill. He is pleasant and cooperative. He is undernourished. VITAL SIGNS: Temperature 98.1 with a T-max of 101 yesterday, pulse 52, respirations 16, and blood pressure 130/58. SKIN: Warm and dry. HEENT: Remarkable for he has got a contused excoriated lesion over the bridge of his nose. He has got forehead with contusion as well. Extraocular muscles are intact. NECK: Supple. CARDIOVASCULAR: Irregularly irregular, with a soft systolic murmur. LUNGS: Few scattered coarse breath sounds, primarily at the bases. ABDOMEN: Soft, nontender, and nondistended. EXTREMITIES: No cyanosis. ____ RECTAL: Deferred. LABORATORY/RADIOLOGIC DATA: Serial lactic acids 5.7, 4.5, and more recently 2.8. Blood cultures are sterile thus far. Initial CBC: White count of 8.4, hemoglobin and hematocrit 13.6 and 40.1, and platelets of 242. Chest x-ray as described above, no acute cardiopulmonary process. Electrolytes: Sodium 139, potassium 4.5, chloride 103, bicarbonate is 27, anion gap of 9, and BUN and creatinine 19 and 1.2. Albumin of 3.9 and total protein of 8.1. CTA chest PE protocol showed no evidence of pulmonary embolus. Urinalysis is unrevealing. ASSESSMENT AND PLAN: Lower respiratory tract infection. Continue empiric therapy ____ down fairly quickly in the next 24 hours. We will await pending results. Unable to collect sputum to this point. He seems to have responded reasonably well. Did discuss with the spouse. <ELECTRONICALLY SIGNED> By: Ej Alexandre MD 03/06/19 1237 1100 [id number] Alexandre MD /nt
[2019-03-06 13:07] LABS: GLYCOHEMOGLOBIN (HGB A1C) 6.2 % (4.8-5.6)
[2019-03-07] VITALS: BP 138/54
[2019-03-07 04:00] VITALS: BP 170/77
[2019-03-07 12:29] VITALS: BP 151/69
[2019-03-07 16:33] VITALS: BP 142/58
[2019-03-07 19:44] LABS: ABSOLUTE BASOPHILS 0.1 thou/uL (0.0-0.2); ABSOLUTE EOSINOPHILS 0.4 thou/uL (0.0-0.7); ABSOLUTE MONOCYTES 0.7 thou/uL (0.0-1.2); ABSOLUTE NEUTROPHILS 4.2 thou/uL (1.6-8.1); BASOPHILS 0.8 %; EOSINOPHILS 5.5 %; HEMATOCRIT 35.1 % (42.0-52.0); HEMOGLOBIN 11.7 gm/dL (14.0-18.0); LYMPHOCYTES 26.6 %; MCH 32.1 pg (26.0-34.0); MCHC 33.2 g/dL (28.0-37.0); MCV 96.5 fL (80.0-100.0); MONOCYTES 9.6 %; MPV 7.1 fl. (7.2-11.1); NUCLEATED RBCS 0 /100WBC; PLATELET COUNT* 220 thou/uL (150-400); POLYS 57.5 %; RBC 3.64 mil/uL (4.50-6.00); WBC 7.3 thou/uL (4.0-11.0)
[2019-03-07 20:00] VITALS: BP 174/89
[2019-03-07 20:11] LABS: ALBUMIN 2.9 g/dL (3.4-5.0); CALCIUM 8.2 mg/dL (8.5-10.1); CREATININE 1.3 mg/dL (0.6-1.3); POTASSIUM 3.8 mmol/L (3.5-5.1); TOTAL BILIRUBIN 0.3 mg/dL (<0.1-1.0); TOTAL PROTEIN 6.6 g/dL (6.4-8.2)
[2019-03-07 21:02] LABS: ESR (SEDRATE) 38 mm/hr (0-20)
[2019-03-08 00:01] VITALS: BP 149/58
[2019-03-08 04:28] VITALS: BP 168/72
[2019-03-08 08:15] VITALS: BP 183/87
[2019-03-08 12:12] VITALS: BP 189/80
[2019-03-08 16:00] VITALS: BP 139/75
[2019-03-08 19:55] VITALS: BP 154/77
[2019-03-09] VITALS (7 sets, daily range): BP systolic 129–170; BP diastolic 63–80
[2019-03-10] VITALS: BP 151/65
[2019-03-10 04:45] LABS: HEMATOCRIT 34.5 % (42.0-52.0); HEMOGLOBIN 11.5 gm/dL (14.0-18.0); MCH 32.1 pg (26.0-34.0); MCHC 33.4 g/dL (28.0-37.0); MPV 7.3 fl. (7.2-11.1); RBC 3.59 mil/uL (4.50-6.00); RDW-CV 13.3 % (10.5-14.5); WBC 9.1 thou/uL (4.0-11.0)
[2019-03-10 05:01] LABS: ALBUMIN 2.9 g/dL (3.4-5.0); CALCIUM 8.5 mg/dL (8.5-10.1); CREATININE 1.2 mg/dL (0.6-1.3); POTASSIUM 3.8 mmol/L (3.5-5.1); TOTAL BILIRUBIN 0.4 mg/dL (<0.1-1.0); TOTAL PROTEIN 6.6 g/dL (6.4-8.2)
[2019-03-10 12:00] VITALS: BP 152/68
[2019-03-10 16:00] VITALS: BP 133/72
[2019-03-10 19:20] VITALS: BP 131/67
[2019-03-11 00:41] VITALS: BP 138/69
[2019-03-11 04:49] VITALS: BP 144/87
[2019-03-11 09:03] VITALS: BP 175/80
[2019-03-11 11:30] VITALS: BP 153/63
[2019-03-11 12:00] VITALS: BP 128/65
[2019-03-11] MEDS ORDERED: CEFDINIR300 MG PO (13:31)
[2019-03-11] MEDS ORDERED: PRILOSEC OTC20 MG PO (13:36)
--- NOTE | 2019-03-14 12:25 | CON ---
[address] [address] CONSULTATION Name: HECTOR CARRINGTON Zen Room: [address] IN M.R.#: [id number] Admission: 03/03/19 Attend Phys: Adams Sams MD Discharge: 03/11/19 Date of : 31 Report #: [id number] THIS REPORT FOR: //name// CC: Keena Sams DATE OF SERVICE: 03/11/2019 NEUROLOGY CONSULTATION REFERRING PHYSICIAN: Dr. Sams. REASON FOR CONSULTATION: Penile edema. HISTORY OF PRESENT ILLNESS: This is an 83-year-old male who is a poor historian. He is admitted to the hospital with multiple medical problems and urology is consulted regarding penile edema. The patient denies penile injury or pain. Denies testicular pain. He does not know of any penile or scrotal swelling. He denies dysuria, hematuria, discharge, slow stream, hesitancy, incomplete emptying or any difficulty voiding. He denies abdominal pain or flank pain. Other than yes/no questions, he does not provide any history. History is largely obtained from the chart. PAST MEDICAL HISTORY: Significant for dementia, supranuclear palsy, coronary artery disease, arrhythmia, hypertension and hypercholesterolemia. PAST SURGICAL HISTORY: He denies any urologic surgery. He has a history of coronary bypass graft, elbow surgery, cataract surgery and back surgery. FAMILY HISTORY: He does not know of any family history of renal disease. SOCIAL HISTORY: He denies use of tobacco or alcohol. REVIEW OF SYSTEMS: He denies chest pain, shortness of breath or palpitations. Denies cough, but was reportedly admitted with a cough. Denies fever. Denies nausea or vomiting. PHYSICAL EXAMINATION: VITAL SIGNS: Temperature 36.9, pulse 62, respirations 18, blood pressure 144/87. GENERAL: This is an 83-year-old male in no acute distress. He is awake and alert, but answers only yes/no questions. Orientation is difficult to ascertain. HEENT: Normocephalic, atraumatic. Oropharynx is clear. NECK: Supple. No JVD. RESPIRATORY: Effort [place] [address] CONSULTATION Name: HECTOR CARRINGTON Room: [address]#: [id number] Admission: 03/03/19 Attend Phys: Adams Sams MD Discharge: 03/11/19 Date of : 33 Report #: [id number] CARDIAC: Rhythm is regular. Radial pulses are palpable. CHEST: Wall is nontender. ABDOMEN: Soft, nontender and nondistended. Spine and costovertebral angles are nontender. EXTREMITIES: Warm. He moves all extremities. No peripheral edema. GENITOURINARY: Reveals mild edema of the foreskin due to paraphimosis. The urethral meatus is orthotopic. Penile skin is otherwise unremarkable. Scrotal skin is normal. Testes are nontender with no palpable masses. LABORATORY DATA: Include a creatinine of 1.2 yesterday and a negative urinalysis from approximately 1 week ago. I reduced his paraphimosis at the bedside, which resulted in resolution of his edema after a few minutes. IMPRESSION: Penile edema secondary to paraphimosis, reduced at bedside. Recommend monitoring to make sure the foreskin remains in the appropriate position. Urology will sign off. Please call with concerns. <ELECTRONICALLY SIGNED> By: Aidan Rider MD 03/14/19 1225 0924 [id number] Rider MD /nt
== END 2019-03-11 17:30 | disposition home health service (06) | DRG 871 ==
LOC: M.ERS 08:48 → M.TBA-ER 10:37 → M.2W 10:37
PROVIDERS: Emergency Medicine Emergency Medical Services; Internal Medicine; ADMIT Family Medicine
DX: A41.9 Sepsis, unspecified organism (principal); J96.01 Acute respiratory failure with hypoxia; I47.1 Supraventricular tachycardia; G93.40 Encephalopathy, unspecified; R65.20 Severe sepsis without septic shock; E78.5 Hyperlipidemia, unspecified; R29.90 Unspecified symptoms and signs involving the nervous system; N47.2 Paraphimosis; R13.10 Dysphagia, unspecified; N18.3 Chronic kidney disease, stage 3 (moderate); I12.9 Hypertensive chronic kidney disease with stage 1 through stage 4 chronic kidney disease, or unspecified chronic kidney disease; J32.9 Chronic sinusitis, unspecified; G30.9 Alzheimer's disease, unspecified; J40 Bronchitis, not specified as acute or chronic; E78.00 Pure hypercholesterolemia, unspecified; I48.91 Unspecified atrial fibrillation; F02.80 Dementia in other diseases classified elsewhere, unspecified severity, without behavioral disturbance, psychotic disturbance, mood disturbance, and anxiety; I25.10 Atherosclerotic heart disease of native coronary artery without angina pectoris; Z95.1 Presence of aortocoronary bypass graft; Z98.49 Cataract extraction status, unspecified eye; Z88.5 Allergy status to narcotic agent; Z88.8 Allergy status to other drugs, medicaments and biological substances

== ENCOUNTER 2020-06-01 07:09 | Inpatient (IN) | payer OTHER ==
[~2020-06-01] VITALS: Ht 177.8 cm; Wt 87.1 kg
[~2020-06-01 07:09] MED LIST changes: +CEFDINIR300 MG PO; +PRILOSEC OTC20 MG PO; +VITAMIN D250000 UNIT PO
[2020-06-01 07:15] VITALS: BP 134/66
[2020-06-01] MEDS ORDERED: ZETIA10 MG PO (07:28)
[2020-06-01] MEDS ORDERED: DIVALPROEX SOD125 MG PO (07:28)
[2020-06-01] MEDS ORDERED: CETIRIZINE HCL5 M1 PO (07:28)
[2020-06-01] MEDS ORDERED: TOPROL XL25 MG PO (07:29)
[2020-06-01] MEDS ORDERED: NAMENDA 10 MG T10 MG PO (07:29)
[2020-06-01] MEDS ORDERED: NASACORT10.8 ML NARES (07:29)
[2020-06-01] MEDS ORDERED: PROZAC20 MG PO (07:29)
[2020-06-01] MEDS ORDERED: VITAMIN D21250 MC1 PO (07:30)
[2020-06-01] MEDS ORDERED: POLYOX WSR-3011 GM (07:30)
[2020-06-01] MEDS ORDERED: TUMS200 MG PO (07:31)
[2020-06-01] MEDS ORDERED: TYLENOL325 MG PO (07:31)
[2020-06-01 08:10] LABS: ABSOLUTE EOSINOPHILS 0.3 thou/uL (0.0-0.7); ABSOLUTE LYMPHOCYTES 1.7 thou/uL (0.8-5.3); ABSOLUTE MONOCYTES 1.1 thou/uL (0.0-1.2); ABSOLUTE NEUTROPHILS 3.6 thou/uL (1.6-8.1); BASOPHILS 0.6 %; EOSINOPHILS 4.6 %; HEMATOCRIT 38.4 % (42.0-52.0); HEMOGLOBIN 13.3 gm/dL (14.0-18.0); LYMPHOCYTES 25.2 %; MCH 33.2 pg (26.0-34.0); MCHC 34.7 g/dL (28.0-37.0); MCV 95.6 fL (80.0-100.0); NUCLEATED RBCS 0 /100WBC; PLATELET COUNT* 169 thou/uL (150-400); POLYS 53.6 %; RBC 4.02 mil/uL (4.50-6.00); RDW-CV 13.1 % (10.5-14.5); WBC 6.6 thou/uL (4.0-11.0)
[2020-06-01 08:20] LABS: APTT 21.2 Seconds (25.0-31.3); PROTIME 10.6 Seconds (9.20-11.50)
[2020-06-01 08:21] LABS: CALCIUM 8.3 mg/dL (8.5-10.1); CREATININE 1.4 mg/dL (0.6-1.3)
[2020-06-01 08:32] LABS: ALBUMIN 3.2 g/dL (3.4-5.0); TOTAL BILIRUBIN 0.9 mg/dL (<0.1-1.0); TOTAL PROTEIN 7.4 g/dL (6.4-8.2)
[2020-06-01 10:30] VITALS: BP 125/58
[2020-06-01 11:00] VITALS: BP 171/87
[2020-06-01 16:44] VITALS: BP 125/90
[2020-06-01 19:50] VITALS: BP 128/67
--- NOTE | 2020-06-01 20:32 | NUR ---
PT ADMITTED THIS SHIFT WITH SHORTNESS OF BREATH. REMAINS ON SUPPLEMENTAL 02. ADMISSION INFORMATION OBTAINED FROM PT SON. SPEECH THERAPY UNABLE TO COMPLETE ASSESSMENT RELATED TO PT INABILITY TO PARTICIPATE IN EXAM. PER PATIENT DAUGHTER REQUEST, UPDATE BEEN PROVIDED TO HER
[2020-06-02] VITALS: BP 132/61
[2020-06-02 04:00] VITALS: BP 105/75
[2020-06-02 04:33] LABS: HEMATOCRIT 35.3 % (42.0-52.0); HEMOGLOBIN 12.3 gm/dL (14.0-18.0); MCH 33.2 pg (26.0-34.0); MCHC 34.7 g/dL (28.0-37.0); MCV 95.7 fL (80.0-100.0); RBC 3.69 mil/uL (4.50-6.00); RDW-CV 12.8 % (10.5-14.5); WBC 6.7 thou/uL (4.0-11.0)
[2020-06-02 05:07] LABS: ALBUMIN 2.6 g/dL (3.4-5.0); CREATININE 1.2 mg/dL (0.6-1.3); MAGNESIUM 1.9 mg/dL (1.8-2.4); POTASSIUM 3.7 mmol/L (3.5-5.1); TOTAL BILIRUBIN 0.6 mg/dL (<0.1-1.0); TOTAL PROTEIN 6.6 g/dL (6.4-8.2)
--- NOTE | 2020-06-02 07:05 | NUR ---
CHANGE OF SHIFT, BEDSIDE REPORT GIVEN PATIENT SEEN AT BEDSIDE IN BED ASLEEP ASSUMED PATIENT CARE
[2020-06-02 08:00] VITALS: BP 131/70
--- NOTE | 2020-06-02 10:16 | NUR ---
KIRILL ATTEMPTED TO SPEAK TO THE PT TO DISCUSS HIS HOME SIUATION, DISCHARGE PLANNING, AND TO INFORM OF THE ROLE OF CM. PT RESTING WITH EYES CLOSED. CM CONTACTED PT'S SPOUSE AND SHE INFORMS THAT THE PT RESIDES AT [facility]. PT IS WHEELCHAIR BOUND, AND REQUIRES ASSISTANCE WITH FEEDING. PT'S SPOUSE INFORMS THAT IF THE PT NEEDS TRANSPORT AT D/C HIS SON CAN PROVIDE TRANSPORT IF APPROPRIATE. KIRILL SPOKE TO SARAH WITH ADMISSIONS AT [facility] AND THEY ARE ABLE TO ACCEPT THE PT AT D/C. PT WILL NEED RAPID COVID TESTING 24-48 HOURS PRIOR TO D/C. CM WILL REMAIN AVAILABLE TO ASSIST AND FOLLOW NEEDED. [facility] PHONE: [phone] FAX: [phone]
--- NOTE | 2020-06-02 10:46 | EKG ---
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
[2020-06-02 11:00] VITALS: BP 174/54
--- NOTE | 2020-06-02 13:21 | 2DMMODE ---
[place] [address] 2 D/M-MODE ECHOCARDIOGRAM Name: HECTOR CARRINGTON Room: [address] IN [facility].#: [id number] Admission: 06/01/20 Attend Phys: Marisabel Lopez, Discharge: Date of : 31 Date of Service: 06/02/20 1321 Report #: [id number] THIS REPORT FOR: cc: Keena Calabrese Mohammad K. DO Liston, Michael J. MD [facility] ~ APPROVED REPORT Study performed: 06/02/2020 10:48:48 EXAM: Comprehensive 2D, Doppler, and color-flow Echocardiogram Patient Location: In-Patient Room #: [facility] Status: routine BSA: 1.97 HR: 58 bpm BP: 131/56 mmHg Rhythm: NSR Other Information Study Quality: Good Indications Dyspnea pulm edema 2D Dimensions IVSd: 8.41 (7-11mm) LVOT Diam: 19.77 (18-24mm) LVDd: 40.79 mm PWd: 7.48 (7-11mm) Ascending Ao: 29.53 (22-36mm) LVDs: 29.60 (25-40mm) Aortic Root: 28.36 mm Volumes Left Atrial Volume (Systole) LA ESV Index: 43.10 mL/m2 Aortic Valve AoV Peak Sarbjit.: 0.87 m/s AO Peak Gr.: 3.01 mmHg LVOT Max P.32 mmHg AO Mean Gr.: 1.78 mmHg LVOT Mean P.60 mmHg LVOT Max V: 0.91 m/s AO V2 VTI: 23.54 cm LVOT Mean V: 0.59 m/s JOANNA (VTI): 3.21 cm2 LVOT V1 VTI: 24.62 [place] [address] 2 D/M-MODE ECHOCARDIOGRAM Name: HECTOR CARRINGTON Room: [address] [place] .R.#: [id number] Admission: 06/01/20 Attend Phys: Marisabel Lopez, Discharge: Date of : 31 Date of Service: 06/02/20 1321 Report #: [id number] Mitral Valve E/A Ratio: 0.99 MV Decel. Time: 194.76 ms MV E Max Sarbjit.: 1.30 m/s MV PHT: 56.48 ms MVA (PHT): 3.90 cm2 TDI E/Lateral E': 16.25 E/Medial E': 18.57 Medial E' Sarbjit.: 0.07 m/s Lateral E' Sarbjit.: 0.08 m/s Pulmonary Valve PV Peak Sarbjit.: 0.94 m/s PV Peak Gr.: 3.54 mmHg Tricuspid Valve RAP Estimate: 5.00 mmHg TR Peak Gr.: 24.43 mmHg RVSP: 29.00 mmHg PA Pressure: 29.00 mmHg Left Ventricle The left ventricle is normal size. There is normal LV segmental wall motion. There is normal left ventricular wall thickness. Left ventricular systolic function is normal. LVEF is 55-60%. Transmitral Doppler flow pattern suggests restrictive physiology. Right Ventricle The right ventricle is normal size. The right ventricular systolic function is normal. Atria Left atrium is moderately dilated. The right atrium size is normal. Aortic Valve Mild aortic valve sclerosis. No aortic regurgitation is present. There is no aortic valvular stenosis. Mitral Valve There is mitral annular calcification. There is no mitral valve regurgitation noted. No evidence of mitral valve stenosis. Tricuspid Valve The tricuspid valve is normal in structure. Trace tricuspid regurgitation. The RVSP is 30-[place] [address] 2 D/M-MODE ECHOCARDIOGRAM Name: HECTOR CARRINGTON Room: [address]#: [id number] Admission: 06/01/20 Attend Phys: Marisabel Lopez, Discharge: Date of : 31 Date of Service: 06/02/20 1321 Report #: [id number] Pulmonic Valve The pulmonary valve is normal in structure. Mild pulmonic regurgitation. Great Vessels The aortic root is normal in size. IVC is not visualized. Pericardium There is no pericardial effusion. <Conclusion> The left ventricle is normal size. There is normal left ventricular wall thickness. Left ventricular systolic function is normal. LVEF is 55-60%. Transmitral Doppler flow pattern suggests restrictive physiology. There is normal LV segmental wall motion. Left atrium is moderately dilated. Mild aortic valve sclerosis. There is no aortic valvular stenosis. There is mitral annular calcification. Trace tricuspid regurgitation. The RVSP is 30-35 mmHg. <ELECTRONICALLY SIGNED> By: Patrice Banuelos MD, FACC 06/02/20 1321 1321 132 Patrice Banuelos MD, FACC /INF
[2020-06-02 16:16] VITALS: BP 133/66
[2020-06-02 19:30] VITALS: BP 145/76
[2020-06-03 00:26] VITALS: BP 125/60
[2020-06-03 05:23] LABS: ABSOLUTE BASOPHILS 0.1 thou/uL (0.0-0.2); ABSOLUTE EOSINOPHILS 0.4 thou/uL (0.0-0.7); ABSOLUTE LYMPHOCYTES 1.5 thou/uL (0.8-5.3); ABSOLUTE MONOCYTES 0.8 thou/uL (0.0-1.2); ABSOLUTE NEUTROPHILS 3.5 thou/uL (1.6-8.1); BASOPHILS 0.8 %; EOSINOPHILS 5.7 %; HEMOGLOBIN 11.8 gm/dL (14.0-18.0); LYMPHOCYTES 24.4 %; MCH 32.7 pg (26.0-34.0); MCHC 34.6 g/dL (28.0-37.0); MCV 94.7 fL (80.0-100.0); MONOCYTES 13.2 %; MPV 6.8 fl. (7.2-11.1); NUCLEATED RBCS 0 /100WBC; PLATELET COUNT* 170 thou/uL (150-400); POLYS 55.9 %; RBC 3.59 mil/uL (4.50-6.00); RDW-CV 12.6 % (10.5-14.5); WBC 6.2 thou/uL (4.0-11.0)
[2020-06-03 05:40] LABS: ALBUMIN 2.6 g/dL (3.4-5.0); CALCIUM 7.7 mg/dL (8.5-10.1); CREATININE 1.1 mg/dL (0.6-1.3); MAGNESIUM 1.8 mg/dL (1.8-2.4); POTASSIUM 3.8 mmol/L (3.5-5.1); TOTAL BILIRUBIN 0.6 mg/dL (<0.1-1.0); TOTAL PROTEIN 6.7 g/dL (6.4-8.2)
[2020-06-03 08:00] VITALS: BP 121/53
[2020-06-03 12:29] VITALS: BP 185/65
[2020-06-03 16:09] VITALS: BP 148/68
--- NOTE | 2020-06-03 19:54 | NUR ---
ASSUMED PT CARE AT 0730, PT NOT ANSWERING MOST QUESTIONS, NO C/O PAIN OR INDICATIONS OF PAIN. PT SATTING 80'S ON 2L THIS MORNING, INCREASED TO 6L, SAT 92%. PT BEING TURNED Q2H TO PREVENT SKIN BREAKDOWN, CURRENTLY HAS FLUIDS RUNNING AT 80 ML/HR. PT WAS SUCTIONED MULTIPLE TIMES THROUGHOUT SHIFT AND WET MOUTH SWABS PROVIDED WELL. PT GOAL IS TO REMAIN FREE FROM SKIN BREAKDOWN AND KEEP FLUIDS RUNNING. PT WORKED W/ SPEECH TODAY AND ORDERED TO STAY NPO R/T SWALLOWING ISSUES, ICE CHIPS ACCEPTABLE. AM ASSESSMENT CHARTED, MEDS PER MAR, HOURLY ROUNDING OBSERVED, FALL PRECAUTIONS IN PLACE, CALL LIGHT W/IN REACH.
[2020-06-03 20:00] VITALS: BP 146/72
[2020-06-04] VITALS (7 sets, daily range): BP systolic 137–172; BP diastolic 63–88
[2020-06-04 04:56] LABS: HEMATOCRIT 36.4 % (42.0-52.0); HEMOGLOBIN 12.8 gm/dL (14.0-18.0); MCH 33.3 pg (26.0-34.0); RBC 3.84 mil/uL (4.50-6.00); RDW-CV 12.8 % (10.5-14.5)
[2020-06-04 05:13] LABS: CALCIUM 8.4 mg/dL (8.5-10.1); CREATININE 1.1 mg/dL (0.6-1.3); MAGNESIUM 1.9 mg/dL (1.8-2.4); POTASSIUM 3.5 mmol/L (3.5-5.1)
--- NOTE | 2020-06-04 05:54 | NUR ---
PATIENT SOMEWHAT ALERT/LETHARGIC. PT WITH FLUIDS INFUSING IN LT WRIST PER DR ORDER. 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 PT INCONTINENT OF URINE; NO BOWEL MOVEMENTS. PT TURNED Q2H PER PROTOCAL. FREQUENTL USED ITEMS AND CALL LIGHT WITHIN REACH. SIDERAILS UPX3 AND BED ALARM ON. WILL CONTINUE TO MONITOR.
--- NOTE | 2020-06-04 12:23 | NUR ---
ASSUMED PT CARE AT 0730, PT NOT VERY RESPONSIVE, KEPT EYES CLOSED THROUGH ASSESSMENT AND CHANGING OF PADS. PT MORE AWAKE LATER THIS MORNING AND WORKED W/ SPEECH, ADVANCED TO SOFT GROUND DIET W/ HONEY THICK LIQUIDS. PT BEING TURNED Q2H AND CLEANED UP FREQUENTLY SINCE HE IS INCONTINENT. PT ON 3L NC RIGHT NOW AND WORKING W/ RT TO GET BREATHING TREATMENTS WELL, SATS HAVE BEEN ABOVE 92% SO FAR TODAY. PT GOAL IS TO KEEP SATS ABOVE 92% AND REMAIN FREE FROM SKIN BREAKDOWN. AM ASSESSMENT CHARTED, MEDS PER MAR, HOURLY ROUNDING OBSERVED, FALL PRECAUTIONS IN PLACE, CALL LIGHT W/IN REACH, WILL CONTINUE POC.
--- NOTE | 2020-06-04 16:58 | NUR ---
I have reviewed the documentation by EVE PEREIRA from 06/04/20 to 06/04/20 and I concur with it. MEGAN WYLIE
[2020-06-05] VITALS (7 sets, daily range): BP systolic 123–162; BP diastolic 66–77
[2020-06-05] MEDS ORDERED: CEFDINIR S250 MG/5 M PO (13:30)
--- NOTE | 2020-06-05 15:39 | NUR ---
CM INFORMED BY NURSING THAT THE PT WILL D/C TODAY. CM INFORMED BY PHYSICIAN THAT HE SPOKE WITH PT'S DTR TO DISCUSS PT'S RETURN AND ADDRESSED HER CONCERNS AND REQUEST FOR SNF PLACEMENT. AT THIS TIME PT NOT APPROPRIAE FOR SNF PLACEMENT. KIRILL SPOKE TO SARAH WITH ADMISSIONS WITH [facility] AND INFORMED OF THE PT'S RETURN. CM FAXED PT'S D/C ORDERS TO [place]. CM ARRANGED TRANSPORT FOR THE PT WITH [facility] NON-EMERGENT AT 1700. CM INFORMED THE RN IN-CHARGE OF THE PT OF THE PT'S TIME OF TRANSPORT AND WHERE TO CALL REPORT. CM WILL REMAIN AVAILABLE TO ASSIST AND FOLLOW NEEDED. [facility] PHONE:[phone]
--- NOTE | 2020-06-05 17:59 | NUR ---
ASSUMED PT CARE AT 0730, PT MOSTLY NON VERBAL. PT TURNED Q2H AND IS INCONTINENT, CLEANED UP FREQUENTLY. PT ON 3L. DC ORDERS RECEIVED FOR PT. DC COMPLETED AND DC PAPERWORK SENT W/ PT TO [facility]. THIS FACILITY WAS CALLED TO GIVE REPORT FOR PT AND FACILITY STATES THEY CANNOT TAKE PT SINCE HE IS ON 3L. I EXPLAINED THAT I WAS NOT AWARE THAT HE WASN'T ON OXYGEN BEFORE COMING HERE AND [facility] WAS ALREADY OUT THE DOOR W/ PT WHEN THIS WAS COMMUNICATED. [facility] STATES THEY DID NOT GET IN THEIR REPORT THAT HE WAS ON O2 HERE. PT RETURNED TO [facility] AT APPROX 1815 AND RETURNED TO ROOM 222. PT GOAL IS TO REMAIN FREE FROM SKIN BREAKDOWN AND WORK ON NEW PLAN FOR DC. AM ASSESSMENT CHARTED, MEDS PER MAR, HOURLY ROUNDING OBSERVED, FALL PRECAUTIONS IN PLACE, CALL LIGHT W/IN REACH
[2020-06-06 02:19] LABS: URINE BILIRUBIN NEGATIVE (Negative); URINE BLOOD NEGATIVE (Negative); URINE CLARITY CLEAR; URINE COLOR YELLOW; URINE GLUCOSE-RANDOM NEGATIVE (Negative); URINE KETONES NEGATIVE (Negative); URINE LEUKOCYTES-REFLEX NEGATIVE (Negative); URINE NITRITE-REFLEX NEGATIVE (Negative); URINE PROTEIN NEGATIVE (Negative); URINE SPECIFIC GRAVITY 1.015 (1.005-1.030)
[2020-06-06 04:00] VITALS: BP 146/70
--- NOTE | 2020-06-06 07:31 | NUR ---
NOTIFIED DR CORLEY PT STILL A PT (NOT ABLE TO DISCHARGE ON DAY SHIFT) AND NO IV ACESS. ORDERS TO D/C IVF AND TELE STATUS AND FOR ROUNDING PHYSICIAN IN AM TO ASSESS FOR D/C. PT O2 SAT ON ROOM AIR ABOVE 90% OR GREATER ON CONTINUOUS PULSE OX THROUGHOUT THE SHIFT WHILE AWAKE AND ASLEEP. PT HAD NO REPORTS OF PAIN OR DISCOMFORT REPORTED OR OBSERVED THROUGHOUT THE SHIFT. NOTIFIED DAY RN.
[2020-06-06 08:00] VITALS: BP 153/81
--- NOTE | 2020-06-06 10:10 | NUR ---
DC ORDERS RECEIVED. CALLED DC TO CONFIRM DISCHARGE BACK TO [facility] TODAY. YAIR BOATENG STATES SHE WAS TOLD BY HER FLORAL ASSISTANT NOT TO ACCEPT PT. INFORMED HER THAT PT IS ON RA AND IS UNCHANGED FROM HIS BASELINE. ASKED NURSE TO SPEAK TO HER FLORAL ASSISTANT AND CALL BACK. RECEIVED CALL BACK FROM YAIR WHO STATES HER FLORAL ASSISTANT TOLD HER THEY CANNOT ACCEPT PT OVER THE WEEKEND THERE IS NO NURSE AVAILABLE AND SHE IS NOT COMFORTABLE HAVING THE IN THE BUILDING WITH NO NURSE.
--- NOTE | 2020-06-06 10:45 | NUR ---
SPOKE TO PEMA AND GIVEN UPDATE ON PT STATUS AND THAT PT WILL NOT BE DISCHARGED TO [facility] TODAY THEY WILL NOT ACCEPT PT OVER THE WEEKEND. ASKING THAT HER DTR BECKIE BE UPDATED "NO ONE HAS BEEN GIVING HER UPDATES". INFORMED THAT DTR IS NOT ON PT SPOKESPERSON LIST BUT CAN BE ADDED IF SHE AGREES. AGREES. DTR ON SPEAKER PHONE AND ALSO GIVEN UPDATE
[2020-06-06 16:03] VITALS: BP 124/70
--- NOTE | 2020-06-06 18:39 | NUR ---
PT RESTING IN BED THROUGHOUT SHIFT. REPOSITIONED FREQUENTLY. INCONTINENT OF URINE. PT TOLERATING PO WELL. PT FED MEALS HE IS TOO WEAK TO FEED SELF AND DAUGHTER UPDATED ON PLAN OF CARE. [facility] UNABLE TO ACCEPT PT OVER THE WEEKEND.
[2020-06-06 20:00] VITALS: BP 132/68
[2020-06-07 04:00] VITALS: BP 131/70
--- NOTE | 2020-06-07 05:53 | NUR ---
PT NONVERBAL BUT DOES MAKE MOANING SOUND WHEN WANTS A DRINK OR ICE CHIPS. ABLE TO ANSWER YES/NO @ TIMES. PT CURRENTLY RESTING IN BED, NO PAIN OR DISCOMFORT NOTED. CALL LIGHT IN REACH. HOURLY ROUNDING FOR SAFETY.
[2020-06-07 08:09] VITALS: BP 140/71
[2020-06-07 16:00] VITALS: BP 142/84
--- NOTE | 2020-06-07 16:27 | NUR ---
PT REMAINS ON ROOM AIR. O2 SAT 93 TO 95%. PT FED MEALS. TURNED Q2H. INCONT B/B.
[2020-06-07 20:00] VITALS: BP 134/73
[2020-06-08 01:00] VITALS: BP 112/53
[2020-06-08 07:50] VITALS: BP 110/60
--- NOTE | 2020-06-08 09:39 | NUR ---
CM SPOKE TO IVON WITH ADMISSION TO DISCUSS THE PT'S RETURN TODAY TO [facility]. CM CONFIRM THAT THE PT REMAINS ON ROOM AIR AND SAT'S @ 95%. IVON INFORMS THAT THE FACILITY IS READY TO ACCEPT THE PT, AND REQUEST THAT NURSING CALL REPORT SOON POSSIBLE AND D/C ORDERS BE FAXED. CM SPOEK TO PT'S SPOUSE AND SHE IS IN AGREEMENT WITH PT'S RETURN TO [place], AND REQUEST THAT THE PT RETURN BY [facility] WHEELCHA[facility] VAN IF POSSIBLE. CM TO CHECK WITH NURSING TO DETERMINE IF THIS CAN BE ARRANGED. CM TO FAX PT'S D/C ORDERS WHEN AVAILABLE. CM WILL REMAIN AVAILABLE TO ASSIST AND FOLLOW NEEDED. [facility] PHONE: [phone] FAX: [phone]
[2020-06-08] MEDS ORDERED: CEFDINIR300 MG PO (10:15)
== END 2020-06-08 13:50 | DRG 177 ==
LOC: M.ERS 07:09 → M.2W 08:34 → M.TBA-ER 08:34 → M.2W 10:26
PROVIDERS: Emergency Medicine Emergency Medical Services; ADMIT Internal Medicine; ATTEND Internal Medicine
DX: J15.6 Pneumonia due to other Gram-negative bacteria (principal); J96.01 Acute respiratory failure with hypoxia; G92 Toxic encephalopathy; D68.59 Other primary thrombophilia; I25.10 Atherosclerotic heart disease of native coronary artery without angina pectoris; I10 Essential (primary) hypertension; E78.00 Pure hypercholesterolemia, unspecified; G30.9 Alzheimer's disease, unspecified; F02.80 Dementia in other diseases classified elsewhere, unspecified severity, without behavioral disturbance, psychotic disturbance, mood disturbance, and anxiety; I48.91 Unspecified atrial fibrillation; R13.10 Dysphagia, unspecified; Z20.828 Contact with and (suspected) exposure to other viral communicable diseases; Z95.1 Presence of aortocoronary bypass graft; Z98.49 Cataract extraction status, unspecified eye; Z79.899 Other long term (current) drug therapy; Z88.2 Allergy status to sulfonamides; Z88.8 Allergy status to other drugs, medicaments and biological substances